=== PATIENT | female | born 1980 | race Caucasian/White ===

== ENCOUNTER 2017-01-03 09:00 | Outpatient (CLI) | payer MEDICAID, OTHER | END 2017-01-03 09:01 | disposition home or self-care (01) | DX: N95.1 Menopausal and female climacteric states (principal); O24.419 Gestational diabetes mellitus in pregnancy, unspecified control; E03.9 Hypothyroidism, unspecified ==

== ENCOUNTER 2017-05-18 10:32 | Outpatient (CLI) | payer MEDICAID ==
--- NOTE | 2017-05-18 15:51 | XRAY Report ---
FOUR-VIEW MANDIBLE: 05/18/2017 CLINICAL INDICATION: TMJ derangement. FINDINGS: AP, Noa, bilateral oblique views of the mandible demonstrate no evidence of acute fract ure. The mandibular condyles are normally located in the temporal fossa bilaterally. IMPRESSION: NORMAL MANDIBLE. JOB #: [id number] EXT JOB #:[id number]
== END 2017-05-18 10:33 | disposition home or self-care (01) ==
LOC: DI.S 10:32
PROVIDERS: ATTEND Family Medicine
DX: M26.69 Other specified disorders of temporomandibular joint (principal)
CPT/HCPCS: 70110

== ENCOUNTER 2017-06-25 19:16 | Emergency (ER) | payer MEDICAID ==
[2017-06-25] MEDS ORDERED: SODIUM CHLORIDE FLUSH 0.9% 10 ML SYRINGE IVP ONE (19:38)
[2017-06-25 20:10] LABS: BILIRUBIN,URINE NEGATIVE (NEGATIVE)
[2017-06-25 20:11] LABS: HCG UR QUAL NEGATIVE; UA w/ MICROSCOPIC CHARGE YES
[2017-06-25] MEDS ORDERED: ONDANSETRON 4 MG/2 ML VIAL IVP STA (20:11)
[2017-06-25] MEDS ORDERED: SODIUM CHLORIDE 0.9% 1,000 ML IV ONE (20:11)
[2017-06-25] MEDS ORDERED: KETOROLAC 60 MG/2 ML VIAL IVP STA (20:11)
--- NOTE | 2017-06-25 20:15 | ED Physician Documentation ---
PD HPI ABD PAIN - Stated complaint Stated Complaint: ABD PAIN - Chief complaint Chief Complaint: Abd Pain - History obtained from History obtained from: Patient - History of Present Illness Timing - onset: Today Timing - duration: Hours Timing - details: Abrupt onset, Still present Quality: Sharp, Pain Location: LUQ Radiation: Left flank Improved by: Other (nothing) Worsened by: Moving, Breathing, Position, Palpation Associated symptoms: Nausea, Vomiting, Dysuria Similar symptoms before: Has not had sx before Recently seen: Clinic - Additional information Additional information: 37 y/o female with urinary symptoms this weekend was put on macrobid today for symptoms and then this evening she developed acute left flank pain that was sudden and severe. Review of Systems Constitutional: denies: Fever, Chills Eyes: denies: Decreased vision Ears: denies: Ear pain Nose: denies: Congestion Throat: denies: Sore throat Cardiac: denies: Chest pain / pressure Respiratory: denies: Cough GI: reports: Abdominal Pain, Nausea, Vomiting : reports: Dysuria, Frequency Skin: denies: Rash Musculoskeletal: reports: Back pain. denies: Neck pain PD PAST MEDICAL HISTORY - Past Medical History Past Medical History: Yes Cardiovascular: None Respiratory: None Endocrine/Autoimmune: None GI: None : Other HEENT: None Psych: None Musculoskeletal: None Derm: None Other Past Medical History: uti - Past Surgical History Past Surgical History: No - Present Medications Home Medications: Ambulatory Orders Medication Instructions Recorded Confirmed Cyclobenzaprine [Flexeril] 10 mg PO HS 06/25/13 06/25/13 Omeprazole [PriLOSEC] 20 mg PO BID 06/25/13 06/25/13 Hydrocodone/Acetaminophen [[place] 1 each PO Q4HR PRN #20 tablet 07/03/16 5-325 Tablet] Ibuprofen [Motrin] 600 mg PO Q6H PRN #30 tab 07/03/16 Norethindrone [Nor-Q-D] 0.35 mg PO DAILY #84 tablet 07/03/16 HYDROcod/ACETAM 5/325 [[place] 5/325] 1 - 2 ea PO Q6H PRN #15 tablet 06/25/17 Sulfamethoxazole/Trimethoprim 1 each PO BID #14 tablet 06/25/17 [Sulfamethoxazole-Tmp Ds Tablet] - Allergies Allergies/Adverse Reactions: Allergies Allergy/AdvReac Type Severity Reaction Status Date / Time No Known Drug Allergies Allergy Verified 06/25/17 19:25 - Social History Does the pt smoke?: No Smoking Status: Never smoker PD ED PE NORMAL - Vitals Vital signs reviewed: Yes (hypertensive) - General General: Well developed/nourished, Other (uncomfortable appearing female with vomit in a bag next to her ) - HEENT HEENT: Atraumatic, PERRL - Neck Neck: Supple, no meningeal sign - Cardiac Cardiac: RRR, No murmur - Respiratory Respiratory: No respiratory distress, Clear bilaterally - Abdomen Abdomen: Soft, Non tender - Back Back: No spinal TTP, Other (pain to the left flank is not made worse by palpation ) - Derm Derm: Normal color, Warm and dry, No rash - Extremities Extremities: No deformity, No edema - Neuro Neuro: No motor deficit, No sensory deficit Results - Vitals Vitals: Vital Signs - 24 hr 06/25/17 19:20 Temperature 36.6 C Heart Rate 95 Respiratory 22 Rate Blood Pressure 139/93 H O2 Saturation 99 Oxygen O2 Source Room air - Labs Labs: Laboratory Tests 06/25/17 06/25/17 06/25/17 19:30 19:40 19:40 WBC 11.4 H RBC 3.97 L Hgb 12.9 Hct 37.5 MCV 94.4 MCH 32.5 H MCHC 34.4 RDW 13.5 Plt Count 219 MPV 7.8 L Neut # 8.1 H Lymph # 2.5 [place]ila # 0.7 Eos # 0.1 Baso # 0.0 Absolute Nucleated RBC 0.00 Nucleated RBCs 0.0 Sodium 133 L Potassium 3.4 L Chloride 101 Carbon Dioxide 22 Anion Gap 10.0 BUN 14 Creatinine 0.6 Estimated GFR (MDRD) 112 Glucose 111 H Calcium 9.2 Total Bilirubin 0.7 AST 28 ALT 36 Alkaline Phosphatase 68 Total Protein 7.7 Albumin 4.6 Globulin 3.1 Albumin/Globulin Ratio 1.5 Lipase 30 Urine Color YELLOW Urine Clarity CLOUDY Urine pH 6.0 Ur Specific [place] 1.020 Urine Protein 100 H Urine Glucose (UA) NEGATIVE Urine Ketones NEGATIVE Urine Occult Blood LARGE H Urine Nitrite NEGATIVE Urine Bilirubin NEGATIVE Urine Urobilinogen 0.2 (NORMAL) Ur Leukocyte Esterase MODERATE H Urine RBC TNTC H Urine WBC >25 H Urine WBC Clumps PRESENT Ur Squamous Epith Cells RARE Squamous Urine Bacteria Few Ur Microscopic Review INDICATED Urine Culture Comments INDICATED Urine HCG, Qual NEGATIVE - Rads (name of study) CT abdomen and pelvis Radiology: Prelim report reviewed (Impression: Mild left hydronephrosis, hydroureter, and perinephric and periureteral fat stranding without obstructing stone or mass identified. This could represent a recently passed stone.), EMP read indepedently, See rad report Procedures - Bedside sono Bedside sono by EMP: with the use of bedside ultrasound the left kidney is imaged and shows hydronephrosis mild with mild sonographic tenderness. PD MEDICAL DECISION MAKING - ED course Complexity details: reviewed results, re-evaluated patient, considered differential, d/w patient, d/w family ED course: 37-year-old female with acute left flank pain that is severe when she arrives to the emergency department has mild hydronephrosis on bedside ultrasound examination and a CT scan is obtained of the abdomen pelvis for concern of a stone. The CT scan as well without evidence of stone but with evidence of residual hydro-ureter and hydronephrosis and the patient recounts that her pain is dramatically improved when she returns to the emergency department from imaging. She has persistence of some left flank pain and urinalysis is consistent with infection with greater than 25 white blood cells per high-power field. She is given IV Rocephin and we will change her antibiotic to sulfa. Departure - Departure Disposition: 01 Home, Self Care Clinical Impression: Pyelonephritis Condition: Stable Instructions: ED Kidney Infec Female Follow-Up: [facility] [Provider Group] Prescriptions: HYDROcod/ACETAM 5/325 [[place] 5/325] 1 - 2 ea PO Q6H PRN #15 tablet PRN Reason: Pain Sulfamethoxazole/Trimethoprim [Sulfamethoxazole-Tmp Ds Tablet] 1 each PO BID # 14 tablet Forms: Activity restrictions
[2017-06-25] MEDS ORDERED: KETOROLAC 30 MG/ML VIAL ONE (20:18)
[2017-06-25] MEDS ORDERED: ONDANSETRON 4 MG/2 ML VIAL ONE (20:18)
[2017-06-25 20:19] LABS: BASOPHILS % (AUTO) 0.3 %; EOSINOPHILS # (AUTO) 0.1 10^3/uL (0.0-0.7); EOSINOPHILS % (AUTO) 0.6 %; HCT - HEMATOCRIT 37.5 % (37.0-47.0); HGB - HEMOGLOBIN 12.9 g/dL (12.0-16.0); LYMPHOCYTES # (AUTO) 2.5 10^3/uL (1.5-3.5); LYMPHOCYTES % (AUTO) 21.8 %; MEAN CORPUSCULAR HEMOGLOBIN 32.5 pg (27.0-31.0); MEAN CORPUSCULAR HGB CONC 34.4 g/dL (32.0-36.0); MEAN CORPUSCULAR VOLUME 94.4 fL (81.0-99.0); MEAN PLATELET VOLUME 7.8 fL (7.9-10.8); MONOCYTES # (AUTO) 0.7 10^3/uL (0.0-1.0); MONOCYTES % (AUTO) 6.5 %; NEUTROPHILS # (AUTO) 8.1 10^3/uL (1.5-6.6); NEUTROPHILS % (AUTO) 70.8 %; RED BLOOD COUNT 3.97 10^6/uL (4.20-5.40); RED CELL DISTRIBUTION WIDTH 13.5 % (12.0-15.0); UNCORRECTED WHITE BLOOD COUNT 11.4 x10^3/uL; WHITE BLOOD COUNT 11.4 x10^3/uL (4.8-10.8)
[2017-06-25 20:26] LABS: UR CULTURE IF IND INDICATED; WBC,URINE >25 /HPF (0-5)
[2017-06-25 20:36] LABS: ALBUMIN/GLOBULIN RATIO 1.5 (1.0-2.2); BILIRUBIN,TOTAL 0.7 mg/dL (0.2-1.0); CALCIUM 9.2 mg/dL (8.5-10.3); CREATININE 0.6 mg/dL (0.4-1.0); POTASSIUM 3.4 mmol/L (3.5-5.0); TOTAL PROTEIN 7.7 g/dL (6.7-8.2)
--- NOTE | 2017-06-25 21:09 | CT Preliminary Report ---
Exam: CT Abdomen/Pelvis W/O IMPRESSION: Mild left hydronephrosis, hydroureter, and perinephric and periureteral fat stranding without obstruc ting stone or mass identified. This could represent a recently passed stone. [facility] SITE ID: [id number]
--- NOTE | 2017-06-25 21:11 | CT Report ---
EXAM: CT ABDOMEN AND PELVIS (CT KUB) EXAM DATE: 06/25/2017 08:38 PM. CLINICAL HISTORY: Left flank pain with nausea and vomiting. Dysuria. COMPARISONS: None. TECHNIQUE: Routine axial helical CT imaging was performed through the abdomen and pelvis without IV c ontrast. Reconstructions: Coronal and sagittal. In accordance with CT protocol optimization, one or more of the following dose reduction techniques w ere utilized for this exam: automated exposure control, adjustment of mA and/or KV based on patient s ize, or use of iterative reconstructive technique. FINDINGS: Lung Bases: Unremarkable. Right Kidney/Ureter: No stones, hydronephrosis, or hydroureter. No perinephric fat stranding. Left Kidney/Ureter: Mild hydronephrosis, hydroureter, and perinephric and periureteral fat stranding. No stones identified. Other Solid Organs: Noncontrast images of the solid organs are grossly unremarkable. Gallbladder/Bile Ducts: Unremarkable. Peritoneal Cavity: No free fluid, free air or lauren adenopathy. Bowel is grossly unremarkable. Pelvic Organs: No bladder stones or wall thickening. Noncontrast images of the visualized pelvic orga ns are unremarkable. Vasculature: Unremarkable. Other: None. IMPRESSION: Mild left hydronephrosis, hydroureter, and perinephric and periureteral fat stranding without obstruc ting stone or mass identified. This could represent a recently passed stone. [facility] Referring Provider Line: [phone] SITE ID: [id number]
[2017-06-25] MEDS ORDERED: cefTRIAXone 1 GM in SODIUM CHLORIDE 0.9% MINIBAG 100 ML IV STA (21:36)
[2017-06-25] MEDS ORDERED: HYDROmorphone 1 MG/ML SYRINGE IVP STA (21:39)
[2017-06-25] MEDS ORDERED: HYDROcod/ACET 5/325 Prepack 6 PO ONE ×2 (21:43→22:23)
[2017-06-25] MEDS ORDERED: cefTRIAXone 1 GM VIAL ONE ×2 (21:48→21:52)
[2017-06-25] MEDS ORDERED: HYDROmorphone 1 MG/ML SYRINGE ONE ×2 (21:48→21:52)
[2017-06-25 22:30] VITALS: BP 131/79
== END 2017-06-25 22:30 | disposition home or self-care (01) ==
LOC: ED 19:16
DX: N12 Tubulo-interstitial nephritis, not specified as acute or chronic (principal); N13.30 Unspecified hydronephrosis; N13.4 Hydroureter
CPT/HCPCS: 36415; 74176; 80053; 81001; 81025; 83690; 85025; 87077; 87086; 87181; 96374; 96375; 99283; 99284; J1170; 81003

== ENCOUNTER 2018-07-05 11:52 | Outpatient (CLI) | payer MEDICAID ==
[2018-07-05 18:37] LABS: BASOPHILS % (AUTO) 0.5 %; EOSINOPHILS # (AUTO) 0.1 10^3/uL (0.0-0.7); HGB - HEMOGLOBIN 13.2 g/dL (12.0-16.0); LYMPHOCYTES # (AUTO) 1.6 10^3/uL (1.5-3.5); MEAN CORPUSCULAR HEMOGLOBIN 33.9 pg (27.0-31.0); MEAN CORPUSCULAR HGB CONC 35.6 g/dL (32.0-36.0); MEAN CORPUSCULAR VOLUME 95.2 fL (81.0-99.0); MEAN PLATELET VOLUME 8.5 fL (7.9-10.8); MONOCYTES # (AUTO) 0.4 10^3/uL (0.0-1.0); MONOCYTES % (AUTO) 6.6 %; NEUTROPHILS # (AUTO) 3.4 10^3/uL (1.5-6.6); NEUTROPHILS % (AUTO) 62.9 %; PLT - PLATELET COUNT 192 10^3/uL (130-450); RED BLOOD COUNT 3.88 10^6/uL (4.20-5.40); RED CELL DISTRIBUTION WIDTH 12.2 % (12.0-15.0); WHITE BLOOD COUNT 5.4 x10^3/uL (4.8-10.8)
[2018-07-05 19:41] LABS: ALBUMIN 4.1 g/dL (3.2-5.5); ALBUMIN/GLOBULIN RATIO 1.3 (1.0-2.2); BILIRUBIN,TOTAL 0.9 mg/dL (0.2-1.0); CALCIUM 8.9 mg/dL (8.5-10.3); CREATININE 0.6 mg/dL (0.4-1.0); TOTAL PROTEIN 7.2 g/dL (6.7-8.2)
[2018-07-05 19:50] LABS: THYROID STIMULATING HORMONE 0.73 uIU/mL (0.34-5.60)
[2018-07-05 19:55] LABS: PROLACTIN 5.69 ng/mL
[2018-07-05 20:19] LABS: HB2 TOTAL 13.6 g/dL; HEMOGLOBIN A1C 0.44 g/dL; HEMOGLOBIN A1C % 5.1 % (4.6-6.2)
== END 2018-07-05 11:53 | disposition home or self-care (01) ==
LOC: LAB.N 11:52
PROVIDERS: ATTEND Family Medicine
DX: N64.52 Nipple discharge (principal); N64.4 Mastodynia; R73.01 Impaired fasting glucose; R53.83 Other fatigue; E03.9 Hypothyroidism, unspecified
CPT/HCPCS: 36415; 80053; 83036; 84144; 84146; 84443; 85025; 85651

== ENCOUNTER 2018-07-16 09:34 | Outpatient (CLI) | payer MEDICAID ==
[2018-07-16 18:09] LABS: FERRITIN 61.5 ng/mL (11.0-306.8)
[2018-07-16 18:12] LABS: % IRON SATURATION 40 % (20-50); IRON 131 ug/dL (28-170); TOTAL IRON BINDING CAPACITY 329 ug/dL (250-450); TRANSFERRIN 235 mg/dL (192-382)
[2018-07-16 18:53] LABS: FOLATE 14.69 ng/mL (5.90 - >24.8)
== END 2018-07-16 09:35 | disposition home or self-care (01) ==
LOC: LAB.F 09:34
PROVIDERS: ATTEND Nurse Practitioner
DX: D64.9 Anemia, unspecified (principal)
CPT/HCPCS: 36415; 82607; 82728; 82746; 83540; 84466

== ENCOUNTER 2018-08-23 11:57 | Outpatient (CLI) | payer MEDICAID | END 2018-08-23 11:58 | disposition home or self-care (01) | LOC: LAB.R 11:57 | PROVIDERS: ATTEND Registered Nurse | DX: N76.0 Acute vaginitis (principal) | CPT/HCPCS: 87491; 87591 ==

== ENCOUNTER 2018-08-28 07:53 | Outpatient (CLI) | payer MEDICAID | END 2018-08-28 07:54 | disposition home or self-care (01) | LOC: LAB 07:53 | PROVIDERS: ATTEND Registered Nurse | DX: R73.01 Impaired fasting glucose (principal) | CPT/HCPCS: 36415; 82951 ==

== ENCOUNTER 2019-07-18 07:00 | Outpatient (CLI) | payer MEDICAID | END 2019-07-18 23:59 | disposition home or self-care (01) | LOC: LAB.R 07:00 | PROVIDERS: ATTEND Registered Nurse | DX: J02.9 Acute pharyngitis, unspecified (principal) | CPT/HCPCS: 87070 ==

== ENCOUNTER 2019-10-21 10:33 | Outpatient (CLI) | payer MEDICAID ==
[2019-10-21 10:44] LABS: HCG UR QUAL NEGATIVE
[2019-10-21 10:49] LABS: BASOPHILS % (AUTO) 0.6 %; EOSINOPHILS # (AUTO) 0.1 10^3/uL (0.0-0.7); EOSINOPHILS % (AUTO) 1.8 %; HGB - HEMOGLOBIN 13.8 g/dL (12.0-16.0); LYMPHOCYTES # (AUTO) 2.3 10^3/uL (1.5-3.5); LYMPHOCYTES % (AUTO) 33.1 %; MEAN CORPUSCULAR HEMOGLOBIN 34.1 pg (27.0-31.0); MEAN CORPUSCULAR HGB CONC 34.5 g/dL (32.0-36.0); MEAN CORPUSCULAR VOLUME 98.8 fL (81.0-99.0); MEAN PLATELET VOLUME 9.4 fL (7.9-10.8); MONOCYTES # (AUTO) 0.5 10^3/uL (0.0-1.0); MONOCYTES % (AUTO) 7.3 %; NEUTROPHILS % (AUTO) 56.9 %; PLT - PLATELET COUNT 224 10^3/uL (130-450); RED BLOOD COUNT 4.05 10^6/uL (4.20-5.40); RED CELL DISTRIBUTION WIDTH 11.8 % (12.0-15.0); WHITE BLOOD COUNT 7.1 x10^3/uL (4.8-10.8)
[2019-10-21 10:59] LABS: CALCIUM 9.8 mg/dL (8.5-10.3); CREATININE 0.6 mg/dL (0.4-1.0)
== END 2019-10-21 10:34 | disposition home or self-care (01) ==
LOC: LAB 10:33
PROVIDERS: ATTEND Obstetrics & Gynecology
DX: Z30.2 Encounter for sterilization (principal); R68.82 Decreased libido
CPT/HCPCS: 36415; 80048; 81025; 85025; 86850; 86900; 86901

== ENCOUNTER 2019-10-22 09:49 | Day surgery (SDC) | payer MEDICAID ==
[2019-10-22] MEDS ORDERED: LACTATED RINGERS 1,000 ML IV ONE (10:11)
[2019-10-22] MEDS ORDERED: CEFAZOLIN SODIUM IN 0.9 % NACL 2 GM/100 ML BAG IV ONE (10:16)
[2019-10-22] MEDS ORDERED: LIDOCAINE 1%-EPI 1:100000 20 ML MDV ONE (11:05)
[2019-10-22] MEDS ORDERED: SCOPOLAMINE PATCH TOP ONE (11:13)
[2019-10-22] MEDS ORDERED: DEXAMETHASONE 4 MG/ML VIAL ONE (11:13)
--- NOTE | 2019-10-22 11:13 | ANESTHESIA ---
Pre-Anesthesia VS, & Labs - Diagnosis undesired fertility - Procedure Laparoscopic salpingectomy and removal of nexplanon Vital Signs: Temp Pulse Resp BP Pulse Ox 36.0 C L 90 18 136/97 H 100 10/22/19 10:12 10/22/19 10:12 10/22/19 10:12 10/22/19 10:12 10/22/19 10:12 Height 5 ft 7 in Weight (kg) 102.6 kg Body Mass Index 32.1 - NPO >8 hours - Is Patient ?: No Home Medications and Allergies Home Medications: Ambulatory Orders Clobetasol Propionate 1 applic TP BID PRN 10/21/19 Etonogestrel [Nexplanon] 68 mg SQ ONCE 10/21/19 Lisdexamfetamine Dimesylate [Vyvanse] 60 mg PO DAILY 10/21/19 Mirtazapine 30 mg PO QPM 10/21/19 risperiDONE [Risperdal] 1 mg PO QPM 10/21/19 Clobetasol Propionate 1 applic TP BID PRN 10/21/19 Etonogestrel [Nexplanon] 68 mg SQ ONCE 10/21/19 Lisdexamfetamine Dimesylate [Vyvanse] 60 mg PO DAILY 10/21/19 Mirtazapine 30 mg PO QPM 10/21/19 risperiDONE [Risperdal] 1 mg PO QPM 10/21/19 Allergies/Adverse Reactions: Allergies Allergy/AdvReac Type Severity Reaction Status Date / Time No Known Drug Allergies Allergy Verified 06/25/17 19:25 Anes History & Medical History - Anesthetic History Anesthesia Complications: reports: Post-Operative Nausea/Vomiting - Medical History Cardiovascular: reports: None Pulmonary: reports: None Gastrointestinal: reports: GERD (resolved after lap oscar) Urinary: reports: None Neuro: reports: None Musculoskeletal: reports: None Endocrine/Autoimmune: reports: None Blood Disorders: reports: None Skin: reports: None Smoking Status: Former smoker (quit 10 years ago) Psychosocial: reports: Depression, Anxiety, Alcohol (2-3 drinks, 3x per week.) - Surgical History General: Other (Lap oscar) Exam General: Alert, Oriented x3, Cooperative, No acute distress Dental: WNL Mouth Openin Fingerbreadth Neck Mobility: Normal Mallampati classification: I Thyromental Distance: greater than 6 cm Respiratory: Lungs clear, Normal breath sounds, No respiratory distress, No accessory muscle use Cardiovascular: Regular rate, Normal S1, Normal S2, No murmurs Mental/Cognitive Status: Alert/Oriented X3, Normal for patient Plan Anesthesia Type: General Consent for Procedure(s) Verified and Reviewed: Yes Code Status: Attempt Resuscitation ASA classification: 2-Mild systemic disease Is this case an emergency?: No
[2019-10-22] MEDS ORDERED: ROCURONIUM 50 MG/5 ML VIAL IVP ONE (11:37)
[2019-10-22] MEDS ORDERED: fentaNYL 100 MCG/2 ML VIAL IVP ONE (11:37)
[2019-10-22] MEDS ORDERED: LIDOCAINE-MPF 2% 5 ML VIAL IM ONE (11:37)
[2019-10-22] MEDS ORDERED: NEOSTIGMINE 1 MG/1 ML 10 ML MDV IVP ONE (11:37)
[2019-10-22] MEDS ORDERED: GLYCOPYRROLATE 1 MG/5 ML VIAL IVP ONE (11:37)
[2019-10-22] MEDS ORDERED: PROPOFOL 200 MG/20 ML VIAL IVP ONE (11:37)
[2019-10-22] MEDS ORDERED: ONDANSETRON 4 MG/2 ML VIAL IVP ONE (11:37)
[2019-10-22] MEDS ORDERED: KETOROLAC 30 MG/ML VIAL IVP ONE (11:37)
[2019-10-22] MEDS ORDERED: ACETAMINOPHEN 1,000 MG/100 ML 100 ML IV ONE (11:37)
[2019-10-22] MEDS ORDERED: LIDOCAINE 1%-EPI 1:100000 30 ML MDV SUBQ ONE (12:21)
[2019-10-22] MEDS ORDERED: HYDROmorphone 0.5 MG/0.5 ML SYRINGE IVP PRN (13:25)
[2019-10-22] MEDS ORDERED: oxyCODONE 5 MG TABLET PO PRN (13:25)
[2019-10-22] MEDS ORDERED: LORazepam 2 MG/ML VIAL IVP PRN (13:25)
[2019-10-22] MEDS ORDERED: ONDANSETRON 4 MG/2 ML VIAL IVP PRN (13:25)
--- NOTE | 2019-10-22 13:28 | OPERATIVE REPORT ---
Operative Report - General Procedure Date: 10/22/19 Planned Procedure: Laproscopic bilateral salpingectomy with removal of Nexplanon Pre-Op Diagnosis: undesired fertility Procedure Performed: Laproscopic bilateral salpingectomy with removal of Nexplanon Post Op Diagnosis: undesired fertility - Procedure Note Secondary Surgeon: Pedrito Lynn MD Anesthesia Provider: Lillian Herrera CRNA Anesthesia Technique: General ET tube Pathology: Bilateral tubes IV Fluids (mL): 700 Estimated Blood Loss (mL): 5 Findings: Normal pelvis and appendix Complications: none
--- NOTE | 2019-10-22 14:00 | OPERATIVE REPORT ---
DATE OF SERVICE: 10/22/2019 Physician: Pedrito Lynn MD PREOPERATIVE DIAGNOSIS: Undesired infertility, Nexplanon in place. POSTOPERATIVE DIAGNOSIS: Undesired infertility, Nexplanon in place. PROCEDURE PERFORMED: Laparoscopic bilateral salpingectomy with removal of the Nexplanon from the lef t arm. SURGEON: Pedrito Lynn MD ANESTHESIA PROVIDER: Lillian Herrera CRNA. ANESTHESIA: General via endotracheal tube. PATHOLOGY: Bilateral fallopian tubes. ESTIMATED BLOOD LOSS: 5 mL IV URINE OUTPUT: 700 mL FINDINGS: Upon entering the abdominal cavity, there was evidence of normal tubes without evidence of adhesions. The appendix also appeared to be free of disease. PROCEDURE IN DETAIL: Following adequate general anesthesia via endotracheal tube, patient was placed in the dorsal lithotomy position. At this point, timeout was performed. She was then prepped and d raped in the usual fashion. A speculum was placed in the vagina. Cervix was visualized, grasped wit h a single-tooth tenaculum, then dilated up to 8 mm. A HUMI catheter manipulator was placed in the c ervix. The corrugated box machine operator's gloves were changed and following this, 1% lidocaine with epinephrine was used to inject the subumbilical area, and an #11 blade was used to incise the skin. A 5 mm trocar and sh eath were placed without difficulty. Then, both the left and right lower quadrants were anesthetized with 1% lidocaine and then incised with a #11 blade. A trocar was placed on either side under direc t visualization. At this point, the left fallopian tube was identified, grasped with a grasper and t hen a LigaSure was used to cauterize and transect the mesosalpinx. Care was taken to stay as close t o the tube as possible to minimize risk of injury to the ovarian vessels. This was carried all the w ay to the cornu and then the tube was transected and brought out through the 5 mm port. This was the n accomplished on the right hand side in the similar fashion. At this point, the appendix was inspec hossein and noted to be normal. The trocars were removed and then the CO2 was allowed to escape. All 3 trocars were closed with 4-0 Monocryl subcuticular and then with Dermabond superficially. The HUMI m anipulator was then removed from the vagina following deflating the balloon. The left arm was then b rought out, prepped with Hibiclens and then following local anesthesia with 1% lidocaine with epineph rine, a skin incision was made with a #15 blade. The Nexplanon was pushed into the incision and gras ped with a hemostat and then removed. It was inspected and noted to be complete. The incision was c losed subcuticularly with Monocryl and then Dermabond placed. Patient tolerated the procedure well a nd was taken to recovery in stable condition. Sponge and needle counts were correct. TD: 10/22/2019 13:38
[2019-10-22] MEDS ORDERED: oxyCODONE 5 MG TABLET ONE (14:04)
[2019-10-22 15:23] VITALS: BP 128/75
== END 2019-10-22 09:50 | disposition home or self-care (01) ==
LOC: SDS 09:49
PROVIDERS: ATTEND Obstetrics & Gynecology
PROC: 0JPV0HZ Removal of Contraceptive Device from Upper Extremity Subcutaneous Tissue and Fascia, Open Approach (ICD-10-PCS; 2019-10-22)
PROC: 0UT74ZZ Resection of Bilateral Fallopian Tubes, Percutaneous Endoscopic Approach (ICD-10-PCS; principal; 2019-10-22 11:15)
DX: Z30.2 Encounter for sterilization (principal); Z30.432 Encounter for removal of intrauterine contraceptive device; F41.9 Anxiety disorder, unspecified; F32.9 Major depressive disorder, single episode, unspecified; F98.8 Other specified behavioral and emotional disorders with onset usually occurring in childhood and adolescence; E66.9 Obesity, unspecified; Z68.36 Body mass index [BMI] 36.0-36.9, adult; Z87.891 Personal history of nicotine dependence; Z87.19 Personal history of other diseases of the digestive system
CPT/HCPCS: 11982; 58661; A9270; J0131; J0690; J1170; J3490; J7120

== ENCOUNTER 2019-11-26 11:51 | Outpatient (CLI) | payer MEDICAID ==
[2019-11-26 17:56] LABS: THYROID STIMULATING HORMONE 1.11 uIU/mL (0.34-5.60)
[2019-11-26 18:24] LABS: FOLLICLE STIMULATING HORMONE 7.88 mIU/mL
[2019-11-26 18:25] LABS: LUTEINIZING HORMONE 6.12 mIU/mL
== END 2019-11-26 11:52 | disposition home or self-care (01) ==
LOC: LAB.S 11:51
PROVIDERS: ATTEND Physician Assistant Medical
DX: Z01.419 Encounter for gynecological examination (general) (routine) without abnormal findings (principal); N93.9 Abnormal uterine and vaginal bleeding, unspecified; R68.82 Decreased libido
CPT/HCPCS: 36415; 81599; 82670; 83001; 83002; 84443

== ENCOUNTER 2020-04-02 23:30 | Emergency (ER) | payer MEDICAID ==
[2020-04-02 23:48] LABS: BILIRUBIN,URINE NEGATIVE (NEGATIVE); GLUCOSE, URINE (UA) NEGATIVE (NEGATIVE); KETONES,URINE (UA) TRACE mg/dL (NEGATIVE); LEUKOCYTE ESTERASE, URINE NEGATIVE (NEGATIVE); NITRITE,URINE NEGATIVE (NEGATIVE); OCCULT BLOOD,URINE MODERATE (NEGATIVE); PROTEIN,URINE NEGATIVE (NEGATIVE); UROBILINOGEN,URINE 0.2 (NORMAL) E.U./dL (NORMAL)
[2020-04-02 23:49] LABS: CLARITY,URINE CLEAR (CLEAR)
[2020-04-02 23:58] LABS: BASOPHILS % (AUTO) 0.3 %; EOSINOPHILS # (AUTO) 0.1 10^3/uL (0.0-0.7); EOSINOPHILS % (AUTO) 0.9 %; HGB - HEMOGLOBIN 14.1 g/dL (12.0-16.0); LYMPHOCYTES # (AUTO) 0.6 10^3/uL (1.5-3.5); LYMPHOCYTES % (AUTO) 9.1 %; MEAN CORPUSCULAR HEMOGLOBIN 34.6 pg (27.0-31.0); MEAN CORPUSCULAR HGB CONC 35.7 g/dL (32.0-36.0); MEAN CORPUSCULAR VOLUME 96.8 fL (81.0-99.0); MEAN PLATELET VOLUME 9.2 fL (7.9-10.8); MONOCYTES # (AUTO) 0.3 10^3/uL (0.0-1.0); MONOCYTES % (AUTO) 4.1 %; NEUTROPHILS # (AUTO) 5.6 10^3/uL (1.5-6.6); NEUTROPHILS % (AUTO) 85.3 %; PLT - PLATELET COUNT 210 10^3/uL (130-450); RED BLOOD COUNT 4.08 10^6/uL (4.20-5.40); RED CELL DISTRIBUTION WIDTH 12.1 % (12.0-15.0); WHITE BLOOD COUNT 6.6 x10^3/uL (4.8-10.8)
[2020-04-02 23:59] LABS: SQUAMOUS EPITHELIAL CELL,UR RARE Squamous (<= Few)
[2020-04-03] LABS: BACTERIA,URINE None Seen /HPF (None Seen)
[2020-04-03] MEDS ORDERED: ONDANSETRON 4 MG/2 ML VIAL IVP STA ×2 (00:01→02:04)
[2020-04-03 00:09] LABS: ALBUMIN 4.4 g/dL (3.2-5.5); ALBUMIN/GLOBULIN RATIO 1.3 (1.0-2.2); BILIRUBIN,TOTAL 0.9 mg/dL (0.2-1.0); CALCIUM 8.6 mg/dL (8.5-10.3); CREATININE 0.6 mg/dL (0.4-1.0); TOTAL PROTEIN 7.7 g/dL (6.7-8.2)
[2020-04-03] MEDS ORDERED: KETOROLAC 30 MG/ML VIAL IVP STA (01:01)
--- NOTE | 2020-04-03 01:35 | ED Physician Documentation ---
History of Present Illness - Stated complaint Stated Complaint: NAUSEA/BODY ACHES - Chief complaint Chief Complaint: Abd Pain - History obtained from History obtained from: Patient - History of Present Illness Timing: Yesterday Pain level max: 6 Pain level now: 4 Improved by: nothing Worsened by: no exacerbating factors - Additonal information Additional information: c/o epigastric cramping since yesterday, episodic. diarrhea x 1 week. nausea without vomiting. has had Lori fundoplication (October 2018) Review of Systems Constitutional: reports: Reviewed and negative Cardiac: reports: Reviewed and negative Respiratory: reports: Reviewed and negative GI: reports: Abdominal Pain, Nausea. denies: Vomiting, Constipation, Diarrhea : denies: Dysuria, Frequency PD PAST MEDICAL HISTORY - Past Medical History Cardiovascular: None Respiratory: None Neuro: None Endocrine/Autoimmune: None GI: GERD (resolved after lap oscar) : None HEENT: None Psych: Depression, Anxiety, ADD/ADHD Musculoskeletal: None Derm: None - Past Surgical History Past Surgical History: No General: Other (Lap oscar) - Present Medications Home Medications: Ambulatory Orders Medication Instructions Recorded Confirmed Clobetasol Propionate 1 applic TP BID PRN 10/21/19 10/21/19 Etonogestrel [Nexplanon] 68 mg SQ ONCE 10/21/19 10/21/19 Lisdexamfetamine Dimesylate 60 mg PO DAILY 10/21/19 10/21/19 [Vyvanse] Mirtazapine 30 mg PO QPM 10/21/19 10/21/19 risperiDONE [Risperdal] 1 mg PO QPM 10/21/19 10/21/19 Ondansetron Odt [Zofran] 4 mg TL Q6H PRN #14 tablet 04/03/20 oxyCODONE [Roxicodone] 5 - 10 mg PO Q6H PRN #20 tablet 04/03/20 - Allergies Allergies/Adverse Reactions: Allergies Allergy/AdvReac Type Severity Reaction Status Date / Time No Known Drug Allergies Allergy Verified 04/02/20 23:37 - Social History Does the pt smoke?: No Smoking Status: Former smoker (quit 10 years ago) PD ED PE NORMAL - Vitals Vital signs reviewed: Yes - General General: Alert and oriented X 3, No acute distress, Well developed/nourished - HEENT HEENT: Moist mucous membranes - Neck Neck: Supple, no meningeal sign - Cardiac Cardiac: RRR, No murmur - Respiratory Respiratory: No respiratory distress, Clear bilaterally - Abdomen Abdomen: Normal bowel sounds, Soft, Non tender, Non distended - Back Back: No CVA TTP - Derm Derm: No rash Results - Vitals Vitals: Oxygen O2 Source Room air - Labs Labs: Laboratory Tests 04/02/20 04/02/20 04/02/20 23:43 23:50 23:50 WBC 6.6 RBC 4.08 L Hgb 14.1 Hct 39.5 MCV 96.8 MCH 34.6 H MCHC 35.7 RDW 12.1 Plt Count 210 MPV 9.2 Neut # (Auto) 5.6 Lymph # (Auto) 0.6 L [place] # (Auto) 0.3 Eos # (Auto) 0.1 Baso # (Auto) 0.0 Absolute Nucleated RBC 0.00 Nucleated RBC % 0.0 Sodium 130 L Potassium 3.8 Chloride 99 L Carbon Dioxide 21 Anion Gap 10.0 BUN 18 Creatinine 0.6 Estimated GFR (MDRD) 111 Glucose 142 H Calcium 8.6 Total Bilirubin 0.9 AST 35 ALT 45 Alkaline Phosphatase 67 Total Protein 7.7 Albumin 4.4 Globulin 3.3 Albumin/Globulin Ratio 1.3 Lipase 30 Urine Color YELLOW Urine Clarity CLEAR Urine pH 6.0 Ur Specific [place] 1.020 Urine Protein NEGATIVE Urine Glucose (UA) NEGATIVE Urine Ketones TRACE Urine Occult Blood MODERATE H Urine Nitrite NEGATIVE Urine Bilirubin NEGATIVE Urine Urobilinogen 0.2 (NORMAL) Ur Leukocyte Esterase NEGATIVE Urine RBC 6-10 H Urine WBC 0-3 Ur Squamous Epith Cells RARE Squamous Urine Bacteria None Seen Ur Microscopic Review INDICATED Urine Culture Comments NOT INDICATED - Rads (name of study) RUQ US Radiology: Prelim report reviewed, See rad report PD MEDICAL DECISION MAKING - ED course Complexity details: reviewed results, re-evaluated patient, considered differential, d/w patient Departure - Departure Disposition: 01 Home, Self Care Clinical Impression: Biliary colic Condition: Good Instructions: ED Gallstone W Biliary Colic Follow-Up: Marisol Gonzalez PA-C [Primary Care Provider] - Within 1 week Michael Solis MD [Provider Admit Priv/Credential] - Prescriptions: oxyCODONE [Roxicodone] 5 - 10 mg PO Q6H PRN #20 tablet PRN Reason: Pain Ondansetron Odt [Zofran] 4 mg TL Q6H PRN #14 tablet PRN Reason: Nausea / Vomiting Discharge Date/Time: 04/03/20 05:53
[2020-04-03] MEDS ORDERED: SODIUM CHLORIDE 0.9% 1,000 ML IV STA (02:04)
[2020-04-03] MEDS ORDERED: HYDROmorphone 1 MG/ML CARPUJECT IVP STA ×2 (02:04→04:24)
[2020-04-03 04:26] VITALS: BP 115/77
--- NOTE | 2020-04-03 08:26 | Ultrasound Report ---
PROCEDURE: Abdomen Limited INDICATIONS: RUQ pain, tenderness TECHNIQUE: Real-time focused scanning was performed of the abdomen, with image documentation. COMPARISON: CT abdomen and pelvis without contrast dated 06/25/2017 FINDINGS: There is a mobile gallstone in the gallbladder. There is no sonographic Corrales's sign. The re is no gallbladder wall thickening. No fluid around the gallbladder. Increased hepatic echogenicity is consistent with fatty change. There is fatty sparing around the gal lbladder. No focal liver mass. Mild enlargement of the liver. The liver measures 20 cm. Visualized portions of the pancreas are unremarkable. No biliary ductal dilatation. Common bile duct measures 5.1 mm. Common hepatic duct measures 4.6 mm. Right kidney is normal in size without hydronephrosis. IMPRESSION: 1. Hepatic steatosis. Mild hepatomegaly. 2. Cholelithiasis without evidence of acute cholecystitis. A preliminary report with the above findings was provided at the time of the study by [facility]. Reviewed by: Rob Muro MD on 04/03/2020 7:25 AM DORIAN Approved by: Rob Muro MD on 04/03/2020 7:25 AM DORIAN Station ID: [id number]
== END 2020-04-03 05:53 | disposition home or self-care (01) ==
LOC: ED 23:30
DX: K80.20 Calculus of gallbladder without cholecystitis without obstruction (principal); K76.0 Fatty (change of) liver, not elsewhere classified; Z87.891 Personal history of nicotine dependence
CPT/HCPCS: 36415; 76705; 80053; 81001; 83690; 85025; 96361; 96374; 96375; 96376; 99284; J1170; 81003; 87086

== ENCOUNTER 2020-04-14 17:46 | Inpatient (IN) | payer MEDICAID ==
[2020-04-14] MEDS ORDERED: ONDANSETRON 4 MG/2 ML VIAL IVP STA ×3 (18:06→21:28)
[2020-04-14] MEDS ORDERED: IOVERSOL 320 50 ML VIAL ONE (18:14)
[2020-04-14] MEDS ORDERED: HYDROmorphone 1 MG/ML CARPUJECT IVP STA ×2 (18:14→19:22)
[2020-04-14] MEDS ORDERED: IOVERSOL 320 100 ML VIAL IVP ONE ×2 (18:14→19:48)
--- NOTE | 2020-04-14 18:18 | ED Physician Documentation ---
PD HPI ABD PAIN - Stated complaint Stated Complaint: NAUSEA - Chief complaint Chief Complaint: Abd Pain - History obtained from History obtained from: Patient - Additional information Additional information: She was seen here on Sunday and admitted for cholecystitis. She had her gallbladder out and she had an inadvertent small bowel enterotomy that was repaired at the time of surgery as well as her hernia. She was doing well when she left the hospital yesterday but starting yesterday evening started having vomiting and increased pain. Now cannot keep down anything except for small sips of liquids. Has not had a bowel movement since prior to the surgery. No fevers. Review of Systems Ten Systems: 10 systems reviewed and negative Constitutional: reports: Reviewed and negative Nose: reports: Reviewed and negative Throat: reports: Reviewed and negative PD PAST MEDICAL HISTORY - Past Medical History Cardiovascular: None Respiratory: None Neuro: None Endocrine/Autoimmune: None GI: GERD (resolved after lap oscar) : None HEENT: None Psych: Depression, Anxiety, ADD/ADHD Musculoskeletal: None Derm: None - Past Surgical History Past Surgical History: No General: Other (Lap oscar) - Present Medications Home Medications: Ambulatory Orders Medication Instructions Recorded Confirmed Clobetasol Propionate 1 applic TP BID PRN 10/21/19 10/21/19 Etonogestrel [Nexplanon] 68 mg SQ ONCE 10/21/19 10/21/19 Lisdexamfetamine Dimesylate 60 mg PO DAILY 10/21/19 10/21/19 [Vyvanse] Mirtazapine 30 mg PO QPM 10/21/19 10/21/19 risperiDONE [Risperdal] 1 mg PO QPM 10/21/19 10/21/19 Ondansetron Odt [Zofran] 4 mg TL Q6H PRN #14 tablet 04/03/20 oxyCODONE [Roxicodone] 5 - 10 mg PO Q6H PRN #20 tablet 04/03/20 Docusate Sodium 250Mg Capsule 250 mg PO BID #20 capsule 04/13/20 [Colace 250Mg Capsule] Ondansetron Odt [Zofran Odt] 4 mg TL Q6H PRN #10 tablet 04/13/20 oxyCODONE [Roxicodone] 5 mg PO Q4-6H PRN #30 tablet 04/13/20 Ondansetron Odt [Zofran Odt] 4 mg TL Q6H PRN #20 tablet 04/14/20 - Allergies Allergies/Adverse Reactions: Allergies Allergy/AdvReac Type Severity Reaction Status Date / Time No Known Drug Allergies Allergy Verified 04/12/20 12:34 - Social History Does the pt smoke?: No Smoking Status: Former smoker (quit 10 years ago) - Family History Family history: reports: Non contributory PD ED PE NORMAL - Vitals Vital signs reviewed: Yes - General General: Alert and oriented X 3, Other (She appears uncomfortable and is retching) - HEENT HEENT: PERRL, EOMI - Neck Neck: Supple, no meningeal sign, No bony TTP - Cardiac Cardiac: RRR, No murmur - Respiratory Respiratory: No respiratory distress, Clear bilaterally - Abdomen Abdomen: Other (Tympanitic distended abdomen with no bowel sounds, moderate diffuse tenderness. Very mild redness in the umbilical incision) - Back Back: No CVA TTP, No spinal TTP - Derm Derm: Normal color, Warm and dry - Extremities Extremities: No edema, No calf tenderness / cord - Neuro Neuro: Alert and oriented X 3, Normal speech Results - Vitals Vitals: Vital Signs - 24 hr 04/14/20 04/14/20 04/14/20 17:52 17:56 18:26 Temperature 36.3 C L Heart Rate 100 102 H 80 Respiratory 18 20 16 Rate Blood Pressure 147/92 H 159/68 H 144/107 H O2 Saturation 96 100 95 04/14/20 04/14/20 04/14/20 18:56 19:47 20:00 Temperature Heart Rate 80 83 87 Respiratory 16 16 16 Rate Blood Pressure 144/107 H 149/93 H 139/104 H O2 Saturation 95 95 96 04/14/20 04/14/20 20:30 21:00 Temperature Heart Rate 98 101 H Respiratory 16 16 Rate Blood Pressure 148/110 H 147/98 H O2 Saturation 95 95 Oxygen O2 Source Room air - Labs Labs: Laboratory Tests 04/14/20 04/14/20 15:29 15:29 WBC 13.4 H RBC 4.20 Hgb 14.6 Hct 41.0 MCV 97.6 MCH 34.8 H MCHC 35.6 RDW 11.9 L Plt Count 255 MPV 9.3 Neut # (Auto) 11.6 H Lymph # (Auto) 1.1 L [place] # (Auto) 0.5 Eos # (Auto) 0.1 Baso # (Auto) 0.0 Absolute Nucleated RBC 0.00 Nucleated RBC % 0.0 Sodium 132 L Potassium 3.6 Chloride 98 L Carbon Dioxide 24 Anion Gap 10.0 BUN 9 Creatinine 0.6 Estimated GFR (MDRD) 111 Glucose 133 H Calcium 9.6 Magnesium 2.2 Total Bilirubin 0.7 AST 28 ALT 44 Alkaline Phosphatase 66 Total Protein 7.9 Albumin 4.3 Globulin 3.6 Albumin/Globulin Ratio 1.2 Lipase 39 PD MEDICAL DECISION MAKING - ED course ED course: 40-year-old woman postop day 2 after a laparoscopic cholecystectomy with a inadvertent small bowel injury that was repaired now with intractable nausea and vomiting and increased pain. Exam consistent with bowel obstruction. Her surgeon, Dr. 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 Pain and nausea were controlled with divided doses of medications. CT was ordered with oral and IV contrast but patient unable to tolerate the oral contrast. Care to Dr. Jaimes at shift change, with general plan to follow-up on CT and call Dr. Villar at that time who is available at [phone] Departure - Departure Disposition: [facility] DC/Xfer Clinical Impression: Small bowel obstruction Condition: Stable
[2020-04-14 18:36] LABS: BASOPHILS % (AUTO) 0.3 %; EOSINOPHILS # (AUTO) 0.1 10^3/uL (0.0-0.7); EOSINOPHILS % (AUTO) 0.6 %; HGB - HEMOGLOBIN 14.6 g/dL (12.0-16.0); LYMPHOCYTES # (AUTO) 1.1 10^3/uL (1.5-3.5); LYMPHOCYTES % (AUTO) 8.1 %; MEAN CORPUSCULAR HEMOGLOBIN 34.8 pg (27.0-31.0); MEAN CORPUSCULAR HGB CONC 35.6 g/dL (32.0-36.0); MEAN CORPUSCULAR VOLUME 97.6 fL (81.0-99.0); MEAN PLATELET VOLUME 9.3 fL (7.9-10.8); MONOCYTES # (AUTO) 0.5 10^3/uL (0.0-1.0); NEUTROPHILS # (AUTO) 11.6 10^3/uL (1.5-6.6); NEUTROPHILS % (AUTO) 86.5 %; PLT - PLATELET COUNT 255 10^3/uL (130-450); RED CELL DISTRIBUTION WIDTH 11.9 % (12.0-15.0); WHITE BLOOD COUNT 13.4 x10^3/uL (4.8-10.8)
[2020-04-14] MEDS ORDERED: METOCLOPRAMIDE 10 MG/2 ML VIAL IVP STA (18:41)
[2020-04-14 18:46] LABS: ALBUMIN 4.3 g/dL (3.2-5.5); ALBUMIN/GLOBULIN RATIO 1.2 (1.0-2.2); BILIRUBIN,TOTAL 0.7 mg/dL (0.2-1.0); CALCIUM 9.6 mg/dL (8.5-10.3); CREATININE 0.6 mg/dL (0.4-1.0); MAGNESIUM 2.2 mg/dL (1.7-2.8); TOTAL PROTEIN 7.9 g/dL (6.7-8.2)
--- NOTE | 2020-04-14 20:31 | SURGERY HX AND PHYSICAL(T) ---
Surgical History & Physical - Chief Complaint/HPI Chief Complaint: Nausea and vomiting History of Present Illness: Nausea and vomiting after cholecystectomy. Chiara reports she hasn't felt well today. She has had significant nausea and has been unable to vomit due to recent Lori. She denies any fever. She reports her abdomen feels tender superiorly and attributes the pain to wretching. On 04/12 she had a cholecystectomy and umbilical hernia repair. Enterotomy was made upon entering the abdomen and was repaired in two layers with vicryl suture. She reports passing a small amount of flatus twice today. She reported her symptoms to the office and was advised to present to the ED for evaluation. - PMH/PSH/Social Hx Does the pt have a hx of MRSA?: No Neurological History: None Eyes, Ears, Nose, Throat: None Cardiovascular: None Respiratory: None Skin: None Endocrine/Autoimmune: None Gastrointestinal: GERD (resolved after lap oscar) Is Patient ?: No Urinary: None Musculoskeletal: None Blood Disorders: None Psychiatric: Depression, Anxiety, ADD/ADHD General: Other (Lap oscar) Smoking Status: Former smoker (quit 10 years ago) Does the pt drink ETOH?: No Does the pt have substance abuse?: No - Home Meds and Allergies Home Medications: Clobetasol Propionate 1 applic TP BID PRN 10/21/19 Etonogestrel [Nexplanon] 68 mg SQ ONCE 10/21/19 Lisdexamfetamine Dimesylate [Vyvanse] 60 mg PO DAILY 10/21/19 Mirtazapine 30 mg PO QPM 10/21/19 risperiDONE [Risperdal] 1 mg PO QPM 10/21/19 Allergies/Adverse Reactions: Allergies Allergy/AdvReac Type Severity Reaction Status Date / Time No Known Drug Allergies Allergy Verified 04/12/20 12:34 - Review of Systems Constitutional: Poor appetite, Diaphoresis Gastrointestinal: Nausea, Vomiting, Flatus - Vital Signs Heart Rate: 83 Blood Pressure: 149/93 Temperature: 36.3 C Respiratory Rate: 16 O2 Saturation: 95 Weight (kg): 99.79 kg Height: 1.7 m - Physical Exam General Appearance: positive: Alert, Mild distress Eyes Bilatera: positive: Normal inspection, PERRL, EOMI ENT: positive: ENT inspection nml Neck: positive: No JVD, Trachea midline Respiratory: positive: No respiratory distress, Breath sounds nml Cardiovascular: positive: Regular rate & rhythm Peripheral Pulses: positive: 1+ Abdomen: positive: Tenderness, Other (appropriately tender to palpation, dressing are dry and in place, no rebound or guarding) Back: positive: Nml inspection Skin: positive: Color nml Extremities: positive: Non-tender Neurologic/Psychiatric: positive: Oriented x3 - Patient Review Patient Review: Problems were reviewed with the patient during this visit. Medications were reviewed with the patient during this visit. Allergies were reviewed this patient during this visit. Pertinent Tests Reviewed: All pertitent test for this patient were reviewed. - Assessment & Plan Assessment and Plan: CT scan is consistent with small bowel obstruction. I think it is likely swelling at the site of repair of the enterotomy. 1. Admit for bowel rest and decompression 2. Recheck labs in the AM. 3. Nutritional support
--- NOTE | 2020-04-14 20:48 | CT Report ---
PROCEDURE: Abdomen/Pelvis W INDICATIONS: Postop abdominal pain, bowel inj CONTRAST: IV CONTRAST: Optiray 320 ml: 100 PO CONTRAST: Optiray 320 ml50 TECHNIQUE: After the administration of oral and intravenous contrast, 5 mm thick sections acquired from the diap hragms to the symphysis. 5 mm thick coronal and sagittal reformats were acquired. For radiation dos e reduction, the following was used: automated exposure control, adjustment of mA and/or kV accordin g to patient size. COMPARISON: CT abdomen pelvis without contrast, 06/25/2017. FINDINGS: Image quality: Excellent. ABDOMEN: Lung bases: Lung bases are clear. Heart size is normal. Solid organs: Liver and spleen are normal in size and enhancement. Gallbladder is surgically absent . There is a small amount of fluid in the gallbladder fossa. Biliary system is non dilated. Pancrea s enhances normally. No adrenal nodules. Kidneys demonstrate normal size and enhancement, without h ydronephrosis. Peritoneum and bowel: Stomach is distended with an air-fluid level. Proximal small intestine is dila hossein and filled with fluid measuring up to 4.9 cm in diameter. There is a transitional point in mid ab domen. The findings are consistent with small bowel obstruction. No free air. There is a small amou nt of free fluid. Nodes and vessels: No retroperitoneal or mesenteric adenopathy by size criteria. Aorta and inferior vena cava are normal in size. Miscellaneous: No ventral hernias. Surgical clip at the umbilicus. There is stranding in the umbili cus likely secondary to postsurgical sequelae. PELVIS: Genitourinary: Bladder wall thickness is normal. Uterus and the left ovary are normal. Right ovary is not definitively visualized. Miscellaneous: No inguinal hernias or adenopathy. Bones: No suspicious bony lesions. No vertebral body compression fractures. IMPRESSION: 1. Small bowel obstruction. The transitional point is seen in the abdomen. 2. Cholecystectomy. There is a small amount of fluid in the gallbladder fossa, most likely hematoma o r seroma. No rim-enhancing fluid correction to suggest abscess at this time. Reviewed by: Denver Landis MD on 04/14/2020 8:46 PM PDT Approved by: Denver Landis MD on 04/14/2020 8:46 PM PDT Station ID: [id number]
[2020-04-14] MEDS ORDERED: LIDOCAINE VISCOUS 2% 15 ML UDC MM STA (21:01)
[2020-04-14] MEDS ORDERED: ONDANSETRON 4 MG/2 ML VIAL IVP PRN (21:06)
[2020-04-14] MEDS ORDERED: ETONOGESTREL 68 MG SQ SCH (21:15)
[2020-04-14] MEDS: ACETAMINOPHEN 1,000 MG/100 ML 100 ML IV SCH (22:42)
[2020-04-14] MEDS: LACTATED RINGERS 1,000 ML IV SCH (22:42)
[2020-04-14] MEDS: KETOROLAC 30 MG/ML VIAL IVP PRN (23:56)
--- NOTE | 2020-04-15 01:24 | ED Physician Documentation ---
ED Addendum - Addendum Addendum: 04/15/20 01:16 Received s/o from Dr. Shearer. CT reveals SBO. Dr. Villar came to ED, evaluated patient and entered admission orders. Subsequently, ED RN attempted several times to place NGT without success. Bedside CXR shows that the NGT is coiled, likely in esophagus. There is no significant output to wall suction. Both the ED RN and I attempted repositioning by partially withdrawing the NGT and then advancing it, but there continued to be no significant output to wall suction (despite large amount of material noted in stomach on CT), suggesting the NGT was still not in the stomach. NGT removed completely and I then d/w Dr. Solis (happened to be in ED for another patient) and informed him that NGT had not been placed but they were ready for patient on the floor, and he agreed that NGT placement can be attempted once patient gets to the floor.
[2020-04-15] MEDS: HYDROmorphone 0.5 MG/0.5 ML SYRINGE IVP PRN ×4 (03:00→22:15)
[2020-04-15] MEDS: ACETAMINOPHEN 1,000 MG/100 ML 100 ML IV SCH ×3 (04:06→18:09)
[2020-04-15 05:04] LABS: BASOPHILS % (AUTO) 0.3 %; EOSINOPHILS # (AUTO) 0.2 10^3/uL (0.0-0.7); EOSINOPHILS % (AUTO) 1.9 %; HGB - HEMOGLOBIN 13.5 g/dL (12.0-16.0); LYMPHOCYTES # (AUTO) 1.8 10^3/uL (1.5-3.5); LYMPHOCYTES % (AUTO) 15.5 %; MEAN CORPUSCULAR HEMOGLOBIN 34.8 pg (27.0-31.0); MEAN CORPUSCULAR HGB CONC 35.1 g/dL (32.0-36.0); MEAN CORPUSCULAR VOLUME 99.2 fL (81.0-99.0); MEAN PLATELET VOLUME 9.7 fL (7.9-10.8); MONOCYTES # (AUTO) 0.8 10^3/uL (0.0-1.0); MONOCYTES % (AUTO) 6.5 %; NEUTROPHILS # (AUTO) 8.9 10^3/uL (1.5-6.6); NEUTROPHILS % (AUTO) 75.3 %; PLT - PLATELET COUNT 266 10^3/uL (130-450); RED BLOOD COUNT 3.88 10^6/uL (4.20-5.40); WHITE BLOOD COUNT 11.8 x10^3/uL (4.8-10.8)
[2020-04-15 05:17] LABS: ALBUMIN 4.2 g/dL (3.2-5.5); ALBUMIN/GLOBULIN RATIO 1.4 (1.0-2.2); BILIRUBIN,TOTAL 0.9 mg/dL (0.2-1.0); CALCIUM 9.6 mg/dL (8.5-10.3); CREATININE 0.7 mg/dL (0.4-1.0); TOTAL PROTEIN 7.2 g/dL (6.7-8.2)
[2020-04-15] MEDS: PANTOPRAZOLE 40 MG VIAL IVP SCH (06:31)
[2020-04-15] MEDS ORDERED: ONDANSETRON 4 MG/2 ML VIAL IVP PRN (06:45)
[2020-04-15] MEDS: KETOROLAC 30 MG/ML VIAL IVP PRN (07:59)
[2020-04-15] MEDS: SODIUM CHLORIDE FLUSH 0.9% 10 ML SYRINGE IVP SCH ×3 (08:00→17:57)
[2020-04-15] MEDS: LORazepam 2 MG/ML VIAL IVP PRN ×2 (08:19→08:54)
--- NOTE | 2020-04-15 08:32 | XRAY Report ---
PROCEDURE: Chest for Line Placement INDICATIONS: NG tube placement TECHNIQUE: One view of the chest was acquired. COMPARISON: None. FINDINGS: Surgical changes and devices: NG tube tip is seen looped back in the distal esophagus with the tip or iented superiorly within mid to distal esophagus and should be repositioned.. Lungs and pleura: No pleural effusions or pneumothorax. Lungs are clear. Mediastinum: Mediastinal contours appear normal. Heart size is normal. Bones and chest wall: No suspicious bony lesions. Overlying soft tissues appear unremarkable. IMPRESSION: NG tube is seen looped within distal esophagus, should be pulled back and repositioned. No acute card iopulmonary pathology. No discrepancies. Reviewed by: Jaylen Armas MD on 04/15/2020 8:31 AM PDT Approved by: Jaylen Armas MD on 04/15/2020 8:31 AM PDT Station ID: [id number]
[2020-04-15] MEDS ORDERED: BENZOCAINE/TETRACAINE/BUTAMBEN 20 GM TOP ONE (09:00)
[2020-04-15] MEDS: ENOXAPARIN 40 MG/0.4 ML SYRINGE SUBQ SCH (09:27)
[2020-04-15] MEDS: LACTATED RINGERS 1,000 ML IV SCH ×2 (09:28→20:21)
--- NOTE | 2020-04-15 11:03 | PHARMACY PROGRESS NOTE ---
- Best Possible Medication History Admit Date and Time: 04/14/202105 Processed by: Pharmacy Medication History completed: Yes Patient Interview: Completed Secondary Source(s): Insurance records As the person ultimately responsible for medication therapy, providers are able to order a medication from an existing home medication list in [employer] via the "Reconcile Routine" prior to Confirmation of that medication by it application support analyst. Such practice is discouraged except when the physician, in their clinical judgment, deems that a medical need exists for a medication without regard to previous use.
--- NOTE | 2020-04-15 17:18 | PROVIDER PROGRESS NOTE ---
Subjective - Prog Note Date Prog Note Date: 04/15/20 Prog Note Time: 17:21 - Subjective Pt reports feeling: Improved Subjective: Unable to place in the ED or on the Med/Surge floor. Chiara reports she was "miserable" all night. Finally got it in about 9 this morning with near immediate relief. She reports it is "night and day" and she is feeling much better. Passed some flatus today - 3 separate episodes. Current Medications - Current Medications Current Medications: Active Medications Enoxaparin Sodium (Lovenox) 40 mg SUBQ DAILY [facility] Last Admin: 04/15/20 09:27 Dose: 40 mg Documented by: Hydromorphone HCl (Dilaudid Inj Syringe) 0.5 mg IVP Q2H PRN PRN Reason: PAIN Last Admin: 04/15/20 16:08 Dose: 0.5 mg Documented by: Lactated Ringer's (Lr) 1,000 mls @ 100 mls/hr IV .Q10H [facility] Last Admin: 04/15/20 09:28 Dose: 100 mls/hr Documented by: Acetaminophen (Ofirmev) 100 mls @ 400 mls/hr IV Q6H [facility] Last Infusion: 04/15/20 12:41 Dose: Infused Documented by: Ketorolac Tromethamine (Toradol Inj (30mg)) 30 mg IVP Q6H PRN PRN Reason: PAIN Stop: 04/19/20 21:05 Last Admin: 04/15/20 07:59 Dose: 30 mg Documented by: Lorazepam (Ativan Inj (Vial)) 0.5 mg IVP Q1H PRN PRN Reason: Anxiety Last Admin: 04/15/20 08:54 Dose: 0.5 mg Documented by: Ondansetron HCl (Zofran Inj) 4 mg IVP Q4HR PRN PRN Reason: Nausea / Vomiting Last Admin: 04/15/20 06:55 Dose: 4 mg Documented by: Pantoprazole Sodium (Protonix) 40 mg IVP QDAC [facility] Last Admin: 04/15/20 06:31 Dose: 40 mg Documented by: Phenol/Menthol (Chloraseptic) 1 sprays MM Q2HR PRN PRN Reason: Throat Pain Sodium Chloride (Normal Saline Flush 0.9%) 10 ml IVP 0100,0900,1700 [facility] Last Admin: 04/15/20 08:00 Dose: 10 ml Documented by: Sodium Chloride (Normal Saline Flush 0.9%) 10 ml IVP PRN PRN PRN Reason: NEEDED PER PROVIDER ORDERS Throat Lozenges (Cepacol) 1 lozenge MM Q2HR PRN PRN Reason: Throat pain Lisdexamfetamine Dimesylate [Vyvanse] 60 mg PO DAILY 10/21/19 Mirtazapine 30 mg PO QPM 10/21/19 risperiDONE [Risperdal] 1 mg PO QPM 10/21/19 Objective - Vital Signs/Intake & Output Reviewed Vital Signs: Yes Vital Signs: Vital Signs x48h Temp Pulse Resp BP Pulse Ox 04/15/20 15:44 36.7 C 94 18 135/84 H 94 Intake & Output: Intake & Output 04/12/20 04/13/20 04/14/20 04/15/20 23:59 23:59 23:59 23:59 Intake Total 100 1210 Output Total 2800 Balance 100 -1590 - Objective General Appearance: positive: No acute distress, Alert Eyes Bilateral: positive: Normal inspection, PERRL, EOMI Respiratory: positive: No respiratory distress, Breath sounds nml Cardiovascular: positive: Regular rate & rhythm Abdomen: positive: No distention, Other (Minimal tenderness to palpation now. No rebound or guarding. Wounds are clean and well approximated.) Skin: positive: Color nml Extremities: positive: Non-tender Neurologic/Psychiatric: positive: Oriented x3 - Lab Results Fish Bones: 04/15/20 04:25 04/15/20 04:25 Other Labs: Lab Results x24hrs 04/15/20 04/15/20 04/14/20 Range/Units 04:25 04:25 15:29 WBC 11.8 H (4.8-10.8) x10^3/uL RBC 3.88 L (4.20-5.40) 10^6/uL Hgb 13.5 (12.0-16.0) g/dL Hct 38.5 (37.0-47.0) % MCV 99.2 H (81.0-99.0) fL MCH 34.8 H (27.0-31.0) pg MCHC 35.1 (32.0-36.0) g/dL RDW 12.0 (12.0-15.0) % Plt Count 266 (130-450) 10^3/uL MPV 9.7 (7.9-10.8) fL Neut # (Auto) 8.9 H (1.5-6.6) 10^3/uL Lymph # (Auto) 1.8 (1.5-3.5) 10^3/uL [place] # (Auto) 0.8 (0.0-1.0) 10^3/uL Eos # (Auto) 0.2 (0.0-0.7) 10^3/uL Baso # (Auto) 0.0 (0.0-0.1) 10^3/uL Absolute Nucleated RBC 0.00 x10^3/uL Nucleated RBC % 0.0 /100WBC Sodium 133 L 132 L (135-145) mmol/L Potassium 3.4 L 3.6 (3.5-5.0) mmol/L Chloride 96 L 98 L (101-111) mmol/L Carbon Dioxide 25 24 (21-32) mmol/L Anion Gap 12.0 10.0 (6-13) BUN 10 9 (6-20) mg/dL Creatinine 0.7 0.6 (0.4-1.0) mg/dL Estimated GFR (MDRD) 93 111 (>89) Glucose 119 H 133 H (70-100) mg/dL Calcium 9.6 9.6 (8.5-10.3) mg/dL Magnesium 2.2 (1.7-2.8) mg/dL Total Bilirubin 0.9 0.7 (0.2-1.0) mg/dL AST 39 28 (10-42) IU/L ALT 45 44 (10-60) IU/L Alkaline Phosphatase 74 66 (42-121) IU/L Total Protein 7.2 7.9 (6.7-8.2) g/dL Albumin 4.2 4.3 (3.2-5.5) g/dL Globulin 3.0 3.6 (2.1-4.2) g/dL Albumin/Globulin Ratio 1.4 1.2 (1.0-2.2) Lipase 39 (22-51) U/L 04/14/20 Range/Units 15:29 WBC 13.4 H (4.8-10.8) x10^3/uL RBC 4.20 (4.20-5.40) 10^6/uL Hgb 14.6 (12.0-16.0) g/dL Hct 41.0 (37.0-47.0) % MCV 97.6 (81.0-99.0) fL MCH 34.8 H (27.0-31.0) pg MCHC 35.6 (32.0-36.0) g/dL RDW 11.9 L (12.0-15.0) % Plt Count 255 (130-450) 10^3/uL MPV 9.3 (7.9-10.8) fL Neut # (Auto) 11.6 H (1.5-6.6) 10^3/uL Lymph # (Auto) 1.1 L (1.5-3.5) 10^3/uL [place] # (Auto) 0.5 (0.0-1.0) 10^3/uL Eos # (Auto) 0.1 (0.0-0.7) 10^3/uL Baso # (Auto) 0.0 (0.0-0.1) 10^3/uL Absolute Nucleated RBC 0.00 x10^3/uL Nucleated RBC % 0.0 /100WBC Sodium (135-145) mmol/L Potassium (3.5-5.0) mmol/L Chloride (101-111) mmol/L Carbon Dioxide (21-32) mmol/L Anion Gap (6-13) BUN (6-20) mg/dL Creatinine (0.4-1.0) mg/dL Estimated GFR (MDRD) (>89) Glucose (70-100) mg/dL Calcium (8.5-10.3) mg/dL Magnesium (1.7-2.8) mg/dL Total Bilirubin (0.2-1.0) mg/dL AST (10-42) IU/L ALT (10-60) IU/L Alkaline Phosphatase (42-121) IU/L Total Protein (6.7-8.2) g/dL Albumin (3.2-5.5) g/dL Globulin (2.1-4.2) g/dL Albumin/Globulin Ratio (1.0-2.2) Lipase (22-51) U/L
[2020-04-15] MEDS: BENZOCAINE/MENTHOL LOZENGE MM PRN (22:15)
[2020-04-16] MEDS: ACETAMINOPHEN 1,000 MG/100 ML 100 ML IV SCH ×4 (00:41→19:16)
[2020-04-16] MEDS: HYDROmorphone 0.5 MG/0.5 ML SYRINGE IVP PRN ×3 (00:41→03:22)
[2020-04-16] MEDS: SODIUM CHLORIDE FLUSH 0.9% 10 ML SYRINGE IVP SCH ×4 (03:05→23:29)
[2020-04-16] MEDS: LACTATED RINGERS 1,000 ML IV SCH (06:21)
[2020-04-16] MEDS: SODIUM CHLORIDE FLUSH 0.9% 10 ML SYRINGE IVP PRN (07:02)
[2020-04-16] MEDS: PANTOPRAZOLE 40 MG VIAL IVP SCH (07:02)
[2020-04-16] MEDS: KETOROLAC 30 MG/ML VIAL IVP PRN (09:39)
[2020-04-16] MEDS: ENOXAPARIN 40 MG/0.4 ML SYRINGE SUBQ SCH (09:40)
[2020-04-16] MEDS: PHENOL THROAT SPRAY 177 ML MM PRN ×3 (09:40→22:37)
[2020-04-16] MEDS: BENZOCAINE/MENTHOL LOZENGE MM PRN ×3 (09:40→22:37)
--- NOTE | 2020-04-16 10:23 | PROVIDER PROGRESS NOTE ---
Subjective - Prog Note Date Prog Note Date: 04/16/20 Prog Note Time: 10:21 - Subjective Pt reports feeling: Improved Subjective: Chiara denies any abdominal pain. Reports she feels "lots of rumbling" in her abdomen. Passed a little gas this morning. No cramping. Anxious for everything to work again. Objective - Vital Signs/Intake & Output Reviewed Vital Signs: Yes Vital Signs: Vital Signs x48h Temp Pulse Resp BP Pulse Ox 04/16/20 09:50 36.6 C 99 18 131/75 H 93 Intake & Output: Intake & Output 04/13/20 04/14/20 04/15/20 04/16/20 23:59 23:59 23:59 23:59 Intake Total 100 2310 1290 Output Total 3800 3000 Balance 100 -1490 -1710 - Objective General Appearance: positive: No acute distress, Alert Eyes Bilateral: positive: Normal inspection, PERRL ENT: positive: ENT inspection nml Respiratory: positive: No respiratory distress, Breath sounds nml Cardiovascular: positive: Regular rate & rhythm Abdomen: positive: Non-tender, Nml bowel sounds, Other (Wounds are clean and dry and well approximated any erythema) Back: positive: Nml inspection Skin: positive: Color nml Neurologic/Psychiatric: positive: Oriented x3 - Lab Results Fish Bones: 04/15/20 04:25 04/15/20 04:25 Assessment/Plan - Problem List (1) Small bowel obstruction Impression: Improving. 1. Recheck labs 2. Nutrition consult for ppn 3. Blood sugar monitoring and sliding scale insulin coverage
[2020-04-16 10:48] LABS: BASOPHILS % (AUTO) 0.5 %; EOSINOPHILS # (AUTO) 0.2 10^3/uL (0.0-0.7); EOSINOPHILS % (AUTO) 2.6 %; HGB - HEMOGLOBIN 13.1 g/dL (12.0-16.0); LYMPHOCYTES # (AUTO) 1.6 10^3/uL (1.5-3.5); MEAN CORPUSCULAR HEMOGLOBIN 34.2 pg (27.0-31.0); MEAN CORPUSCULAR HGB CONC 34.9 g/dL (32.0-36.0); MEAN CORPUSCULAR VOLUME 97.9 fL (81.0-99.0); MEAN PLATELET VOLUME 9.3 fL (7.9-10.8); MONOCYTES # (AUTO) 0.6 10^3/uL (0.0-1.0); MONOCYTES % (AUTO) 7.5 %; NEUTROPHILS # (AUTO) 5.2 10^3/uL (1.5-6.6); NEUTROPHILS % (AUTO) 67.9 %; PLT - PLATELET COUNT 227 10^3/uL (130-450); RED BLOOD COUNT 3.83 10^6/uL (4.20-5.40); RED CELL DISTRIBUTION WIDTH 11.9 % (12.0-15.0); WHITE BLOOD COUNT 7.6 x10^3/uL (4.8-10.8)
[2020-04-16 10:57] LABS: BUN - BLOOD UREA NITROGEN 13 mg/dL (6-20); CALCIUM 8.8 mg/dL (8.5-10.3); CARBON DIOXIDE - CO2 26 mmol/L (21-32); CHLORIDE 95 mmol/L (101-111); CREATININE 0.6 mg/dL (0.4-1.0); GLUCOSE 101 mg/dL (70-100); SODIUM 135 mmol/L (135-145)
[2020-04-16] MEDS ORDERED: INSULIN ASPART 300 UNIT/3 ML PEN SUBQ SCH (12:00)
[2020-04-16] MEDS: INSU100I18 SUBQ SCH ×3 (12:02→20:59)
[2020-04-16] MEDS ORDERED: D5NS W/20 MEQ KCL 1,000 ML IV SCH ×2 (16:00→20:43)
[2020-04-16] MEDS: POTASSIUM CHLOR 10 MEQ/100 ML 10 MEQ/100 ML BAG IV SCH ×2 (16:28→17:44)
[2020-04-16] MEDS ORDERED: LACTATED RINGERS 500 ML IV PRN (20:24)
[2020-04-17] MEDS: ACETAMINOPHEN 1,000 MG/100 ML 100 ML IV SCH ×5 (01:06→23:55)
[2020-04-17] MEDS: D5NS W/20 MEQ KCL 1,000 ML IV SCH ×2 (01:07→09:14)
[2020-04-17] MEDS: BENZOCAINE/MENTHOL LOZENGE MM PRN ×3 (01:08→09:15)
[2020-04-17 06:02] LABS: CALCIUM 7.9 mg/dL (8.5-10.3); CREATININE 0.6 mg/dL (0.4-1.0)
[2020-04-17] MEDS: PANTOPRAZOLE 40 MG VIAL IVP SCH (06:28)
[2020-04-17] MEDS: INSU100I18 SUBQ SCH ×4 (09:12→21:06)
[2020-04-17] MEDS: SODIUM CHLORIDE FLUSH 0.9% 10 ML SYRINGE IVP SCH ×3 (09:13→23:55)
[2020-04-17] MEDS: ENOXAPARIN 40 MG/0.4 ML SYRINGE SUBQ SCH (09:14)
--- NOTE | 2020-04-17 16:58 | PROVIDER PROGRESS NOTE ---
Subjective - Prog Note Date Prog Note Date: 04/17/20 Prog Note Time: 22:00 - Subjective Pt reports feeling: Improved Subjective: Chiara reports feeling much better. She denies any nausea and reports she had a bowel movement this AM. Denies any pain. Current Medications - Current Medications Current Medications: Enoxaparin Sodium (Lovenox) 40 mg SUBQ DAILY [facility] Last Admin: 04/17/20 09:14 Dose: 40 mg Documented by: Hydromorphone HCl (Dilaudid Inj Syringe) 0.5 mg IVP Q2H PRN PRN Reason: PAIN Last Admin: 04/16/20 03:22 Dose: 0.5 mg Documented by: Acetaminophen (Ofirmev) 100 mls @ 400 mls/hr IV Q6H [facility] Last Admin: 04/17/20 12:26 Dose: Not Given Documented by: Lactated Ringer's (Lr) 500 mls @ 999 mls/hr IV PRN PRN PRN Reason: uo less than 250 ml/shift Insulin Aspart (Novolog) 1 - 9 unit SUBQ 0800,1200,1700,2100 [facility]; Protocol Last Admin: 04/17/20 16:52 Dose: Not Given Documented by: Ketorolac Tromethamine (Toradol Inj (30mg)) 30 mg IVP Q6H PRN PRN Reason: PAIN Stop: 04/19/20 21:05 Last Admin: 04/16/20 09:39 Dose: 30 mg Documented by: Lorazepam (Ativan Inj (Vial)) 0.5 mg IVP Q1H PRN PRN Reason: Anxiety Last Admin: 04/15/20 08:54 Dose: 0.5 mg Documented by: Ondansetron HCl (Zofran Inj) 4 mg IVP Q4HR PRN PRN Reason: Nausea / Vomiting Last Admin: 04/15/20 06:55 Dose: 4 mg Documented by: Pantoprazole Sodium (Protonix) 40 mg IVP QDAC [facility] Last Admin: 04/17/20 06:28 Dose: 40 mg Documented by: Phenol/Menthol (Chloraseptic) 1 sprays MM Q2HR PRN PRN Reason: Throat Pain Last Admin: 04/16/20 22:37 Dose: 1 sprays Documented by: Sodium Chloride (Normal Saline Flush 0.9%) 10 ml IVP 0100,0900,1700 [facility] Last Admin: 04/17/20 09:13 Dose: Not Given Documented by: Sodium Chloride (Normal Saline Flush 0.9%) 10 ml IVP PRN PRN PRN Reason: NEEDED PER PROVIDER ORDERS Last Admin: 04/16/20 07:02 Dose: 10 ml Documented by: Throat Lozenges (Cepacol) 1 lozenge MM Q2HR PRN PRN Reason: Throat pain Last Admin: 04/17/20 09:15 Dose: 1 lozenge Documented by: Objective - Vital Signs/Intake & Output Reviewed Vital Signs: Yes Vital Signs: Vital Signs x48h Pulse Resp BP Pulse Ox 04/17/20 16:10 84 16 142/83 H 97 Intake & Output: Intake & Output 04/14/20 04/15/20 04/16/20 04/17/20 23:59 23:59 23:59 23:59 Intake Total 100 2310 3703.340 2573.75 Output Total 3800 4700 1380 Balance 100 -1490 -992.150 7848.75 - Objective General Appearance: positive: No acute distress, Alert Eyes Bilateral: positive: Normal inspection, PERRL, EOMI ENT: positive: ENT inspection nml Neck: positive: Nml inspection Respiratory: positive: No respiratory distress, Breath sounds nml Cardiovascular: positive: Regular rate & rhythm, No murmur Abdomen: positive: Non-tender, Nml bowel sounds, Other (Wounds are clean and dry) Skin: positive: Color nml Extremities: positive: Non-tender Neurologic/Psychiatric: positive: Oriented x3 - Lab Results Fish Bones: 04/16/20 10:42 04/17/20 05:33 Other Labs: Lab Results x24hrs 04/17/20 04/17/20 04/17/20 Range/Units 16:44 11:08 07:34 Sodium (135-145) mmol/L Potassium (3.5-5.0) mmol/L Chloride (101-111) mmol/L Carbon Dioxide (21-32) mmol/L Anion Gap (6-13) BUN (6-20) mg/dL Creatinine (0.4-1.0) mg/dL Estimated GFR (MDRD) (>89) Glucose (70-100) mg/dL POC Whole Bld Glucose 86 107 H 93 (70 - 100) mg/dL Calcium (8.5-10.3) mg/dL 04/17/20 04/16/20 Range/Units 05:33 20:59 Sodium 135 (135-145) mmol/L Potassium 3.5 (3.5-5.0) mmol/L Chloride 102 (101-111) mmol/L Carbon Dioxide 26 (21-32) mmol/L Anion Gap 7.0 (6-13) BUN 10 (6-20) mg/dL Creatinine 0.6 (0.4-1.0) mg/dL Estimated GFR (MDRD) 111 (>89) Glucose 111 H (70-100) mg/dL POC Whole Bld Glucose 99 (70 - 100) mg/dL Calcium 7.9 L (8.5-10.3) mg/dL Assessment/Plan - Problem List (1) Small bowel obstruction Impression: Improving 1. Remove NGT 2. Advance diet 3. Likely home tomorrow if improvement continues
[2020-04-18] MEDS: PANTOPRAZOLE 40 MG VIAL IVP SCH (06:23)
[2020-04-18] MEDS: ACETAMINOPHEN 1,000 MG/100 ML 100 ML IV SCH (06:23)
[2020-04-18] MEDS: SODIUM CHLORIDE FLUSH 0.9% 10 ML SYRINGE IVP PRN (06:23)
[2020-04-18 07:50] VITALS: BP 134/74
[2020-04-18] MEDS: INSU100I18 SUBQ SCH (08:31)
[2020-04-18] MEDS: ENOXAPARIN 40 MG/0.4 ML SYRINGE SUBQ SCH (08:38)
[2020-04-18] MEDS: SODIUM CHLORIDE FLUSH 0.9% 10 ML SYRINGE IVP SCH (08:38)
--- NOTE | 2020-04-18 10:05 | Discharge Plan ---
Discharge Plan Problem Reviewed?: Yes Disposition: Home, Self Care Condition: Good Diet: Regular Activity Restrictions: lifting limit 15 pounds Shower Restrictions: No Driving Restrictions: Yes (Do not drive while using narcotics) Weight Bearing: Full Weight Instruction Topics: Gallstones, Gallbladder Surg No Smoking: If you smoke, Please STOP! Call for help. Follow-up with: Marisol Gonzalez PA-C [Primary Care Provider] - Ana Luisa Villar MD [Provider Admit Priv/Credential] -
--- NOTE | 2020-04-18 10:08 | DISCHARGE SUMMARY ---
"Discharge Summary Admit Date: 04/14/20 Discharge Date: 04/18/20 Discharging Provider: Jian Primary Care Provider: Marisol Gonzalez Code Status: Attempt Resuscitation Condition at Discharge: Good Discharge Disposition: 01 Home, Self Care - DIAGNOSES Admission Diagnoses: Small bowel obstruction Discharge Diagnoses with Status of Each Condition: Resolved - HPI History of Present Illness: Nausea and vomiting after cholecystectomy. Chiara reports she hasn't felt well today. She has had significant nausea and has been unable to vomit due to recent Lori. She denies any fever. She reports her abdomen feels tender superiorly and attributes the pain to wretching. On 04/12 she had a cholec ystectomy and umbilical hernia repair. Enterotomy was made upon entering the abdomen and was repaired in two layers with vicryl suture. She reports passing a small amount of flatus twice today. She reported her symptoms to the office and was advised to present to the ED for evaluation. - CONSULTS | PROCEDURES Consultations: None Procedures: None - HOSPITAL COURSE Hospital Course: Chiara was admitted for bowel rest, NGT decompression and supportive care. After NG successfully placed, pain resolved. Labs normalized of the following 24-36 hours. On the second hospital day, bowel function returned as demonstrated by flatus and bowel movement. NG was removed and diet advance. No further nausea and vomiting. Has not required any pain medications. She is discharged to her home in the care of her family. She will follow up with the surgery clinic on SundayApril 21 for clip removal, - ALLERGIES Allergies/Adverse Reactions: Allergies Allergy/AdvReac Type Severity Reaction Status Date / Time No Known Drug Allergies Allergy Verified 04/12/20 12:34 - MEDICATIONS Home Medications: Ambulatory Orders Medication Instructions Recorded Confirmed Lisdexamfetamine Dimesylate 60 mg PO DAILY 10/21/19 04/15/20 [Vyvanse] Mirtazapine 30 mg PO QPM 10/21/19 04/15/20 risperiDONE [Risperdal] 1 mg PO QPM 10/21/19 04/15/20 Ondansetron Odt [Zofran Odt] 4 mg TL Q6H PRN #14 tablet 04/03/20 04/15/20 - PHYSICAL EXAM AT DISCHARGE General Appearance: positive: No acute distress, Alert Eyes Bilateral: positive: Normal inspection ENT: positive: ENT inspection nml Neck: positive: Nml inspection Respiratory: positive: No respiratory distress, Breath sounds nml Cardiovascular: positive: Regular rate & rhythm Peripheral Pulses: positive: 1+ Abdomen: positive: Non-tender, Nml bowel sounds, No distention Back: positive: Nml inspection Skin: positive: Color nml Neurologic/Psychiatric: positive: Oriented x3 - LABS Result Diagrams: 04/16/20 10:42 04/17/20 05:33 - QUALITY (Female Hip Fx Only) Was patient sent home on osteoporosis medication?: No - FOLLOW UP Follow Up: SundayApril 21 with [facility] - TIME SPENT Time Spent in Discharge (Minutes): 20"
== END 2020-04-18 11:13 | disposition home or self-care (01) | DRG 390 ==
LOC: ED 17:46 → MS3 21:06 → MS2 04-16 19:01
PROVIDERS: ADMIT Surgery; ATTEND Surgery
DX: K91.30 Postprocedural intestinal obstruction, unspecified as to partial versus complete (principal); Y83.8 Other surgical procedures as the cause of abnormal reaction of the patient, or of later complication, without mention of misadventure at the time of the procedure; Y92.234 Operating room of hospital as the place of occurrence of the external cause; F32.9 Major depressive disorder, single episode, unspecified; F41.9 Anxiety disorder, unspecified; F90.2 Attention-deficit hyperactivity disorder, combined type; Z79.899 Other long term (current) drug therapy; Z87.891 Personal history of nicotine dependence
CPT/HCPCS: 36415; 71045; 74177; 80048; 80053; 83690; 83735; 85025; 96374; 96375; 96376; 99285; A9270; J0131; J1170; J1650; J2060; J2765; J7120; Q9967

== ENCOUNTER 2020-10-04 15:41 | Outpatient (CLI) | payer MEDICAID ==
[2020-10-04 20:03] LABS: BASOPHILS % (AUTO) 0.5 %; EOSINOPHILS # (AUTO) 0.1 10^3/uL (0.0-0.7); EOSINOPHILS % (AUTO) 1.4 %; LYMPHOCYTES # (AUTO) 2.2 10^3/uL (1.5-3.5); LYMPHOCYTES % (AUTO) 34.1 %; MEAN CORPUSCULAR HEMOGLOBIN 33.9 pg (27.0-31.0); MEAN CORPUSCULAR HGB CONC 34.2 g/dL (32.0-36.0); MEAN CORPUSCULAR VOLUME 99.2 fL (81.0-99.0); MEAN PLATELET VOLUME 10.3 fL (7.9-10.8); MONOCYTES # (AUTO) 0.4 10^3/uL (0.0-1.0); MONOCYTES % (AUTO) 6.3 %; NEUTROPHILS # (AUTO) 3.7 10^3/uL (1.5-6.6); NEUTROPHILS % (AUTO) 57.4 %; PLT - PLATELET COUNT 217 10^3/uL (130-450); RED BLOOD COUNT 3.83 10^6/uL (4.20-5.40); WHITE BLOOD COUNT 6.5 x10^3/uL (4.8-10.8)
[2020-10-04 20:37] LABS: HEMOGLOBIN A1c% 5.2 % (4.27-6.07)
== END 2020-10-04 15:42 | disposition home or self-care (01) ==
LOC: LAB.S 15:41
PROVIDERS: ATTEND Registered Nurse
DX: R53.82 Chronic fatigue, unspecified (principal); G47.9 Sleep disorder, unspecified; F41.1 Generalized anxiety disorder; E03.9 Hypothyroidism, unspecified
CPT/HCPCS: 36415; 83036; 84443; 85025

== ENCOUNTER 2020-11-03 15:19 | Outpatient (CLI) | payer MEDICAID ==
[2020-11-03 16:11] VITALS: BP 130/89
--- NOTE | 2020-11-03 16:11 | SLEEP CARE CONSULTATION ---
Information from patient questionnaire entered by Traci Spears. I have reviewed and concur with the information entered by Traci Spears. This document represents the service I personally performed and the decisions made by me, Lorrie Griffiths ARNP. History of Present Illness Service Date and Time: 11/03/2020 1519 Reason for Visit: New patient Chief Complaint: reports: Unrefreshed sleep, Snoring (rarely, mouth breather), Excessive daytime sleepiness, Fatigue, Frequent awakenings at night. denies: Observed pauses in breathing Date of Onset: Many years, 15 + Usual bedtime: 10:30 - 11:30 Time it takes to fall asleep: 10 - 25 min Snores at night: No Observed to quit breathing while asleep: No Sleeps alone due to snoring: No Number of times waking at night: 4 - 10 Reasons for waking at night: reports: Snoring, Bathroom, Other (Thirsty, no reason). denies: Choking, Gasping for air Toss, Turn, or Twitch while sleeping: Yes Recalls having dreams: Yes Usually gets out of bed at: 8:30 - 10:00 Feels refreshed in the morning: No Morning headache: Yes (2-3 times a week, last 1 hour or needs meds) Sleepy or fatigued during the day: Yes Ever fallen asleep while driving: Yes (no accidents, drowsy driving) Takes day naps: No Dreams during day naps: No Prior sleep studies: No Additional HPI information: I had the pleasure of seeing KAUR TITUS today regarding the possibility of her having a sleep disorder. Her current complaints are frequent night awakenings, unrefreshed sleep, excessive daytime sleepiness and fatigue. She has had trouble sleeping since she was in high school. She has tried several sleeping medications that help for about 4 hours and then she continues to wake up a lot. She also thinks she has restless legs syndrome. Her PCP sent her for evaluation due to being on sleep medications for so long. She states she ruminates at night on things and is not able to shut mind down to sleep, even when she was a little child. - Parasomnia Symptoms Ever been unable to move upon waking from sleep: No Walks in sleep: Yes (when little) Talks in sleep: Yes (when little would talk to sibling) Ever acted out dreams in sleep: No Ever felt weak in the knees when startled or emotional: Yes (never fallen to ground) Bothered by creepy, crawly, restless sensations in legs: Yes (throughout day when sedentary and worse at night) Problems with memory or concentration: Yes (both, "fog brain" all the time) Subjective Initial [place] Sleepiness Scale score: 10 (in 2020) Past Medical History Past Medical History: reports: Hypertension, Claustrophobia, Arthritis, Insulin resistance, Hypothyroidism, Anxiety, Depression, Mood disorder (PTSD, Bipolar), GERD, Attention deficit Social History 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 Patient is and lives in [place]. Have you smoked in the past 12 months: No Cigarettes per day (20/pack): 10 Years of smokin Quit date: 2008 Smoking Pack Years: 5.0 Alcohol use: Yes Alcohol amount and frequency: 1 - 4, once in a while, 3 times this month Caffeine use: Yes Caffeine amount and frequency: 1 - 2 a day Family History Family history of sleep disordered breathing: No Family Hx Sleep Apnea: Father: Snoring Allergies and Home Medications Drug allergies reviewed: Yes (NKDA) Home medication list reviewed: Yes Allergy and home medication list: Bupropion 150 mg Q AM Metformin 500 mg Q day Mirtazapine 30 mg to help her sleep "Sleep" night powder: L-glycine 3000 mg Ltyphopin 250 mg L-Theonie 200 mg L-5-HTP 100 mg Melatonin 1 mg Review of Systems Weight gain over past 5 years: 20 Cardiovascular: reports: irregular heart rate or pulse Gastrointestinal: reports: heartburn, difficulty swallowing, nausea, vomitting, diarrhea, abdominal pain Urinary: reports: incontinence, frequency, urgency Neurological: reports: headaches Psychiatric: reports: anxiety, depression, mood disorder, claustrophobia Ear/Nose/Throat: reports: nasal congestion, nose bleeds, dry mouth/throat, wisdom teeth removed. denies: tonsillectomy Endocrine: reports: thyroid disease, sluggishness (tired), too hot or cold, excessive thirst, increased appetite, increased urination, unexplained weakness Musculoskeletal: reports: joint pain, neck pain, back pain, muscle pain or cramping Immunologic: reports: allergies to food or environment (whey allergy) Physical Exam Blood Pressure: 130/89 Cuff size: wrist Heart Rate: 85 O2 Saturation: 99 Height: 5 ft 7 in Weight: 227 lb Body Mass Index: 35.5 BMI Classification: Obese Neck circumference: 15.25 (inches) Nostrils: patent to airflow Turbinates: swollen Mouth and throat: narrow oropharynx Soft palate: long Hard palate: normal Uvula: normal Uvula visualization: 100% Mallampati Class I Tongue: enlarged in size with teeth linn on lateral edges Tonsils: small Neck: normal w/o lymphadenopathy or thyromegaly Heart: regular rate and rhythm Lungs: clear bilaterally Impression and Plan 1. Suspected Obstructive Sleep Apnea-Hypopnea Syndrome, as suggested by a history of irregular snoring, morning headache, frequent awakening during the night, unrefreshed sleep, cognitive impairment, and excessive daytime sleepiness. Narrow oropharynx and obesity are common predisposing factors for obstructive sleep apnea-hypopnea syndrome. I recommend proceeding to poly somnography to confirm the diagnosis and to assess severity. If the patient has significant sleep disordered breathing, a manual CPAP titration study will also be performed to find the optimal treatment pressure. I informed the patient of what the sleep studies involve and after some discussion, obtained agreement to proceed. The pathophysiology of obstructive sleep apnea-hypopnea syndrome was discussed with the patient and health risks of cardiovascular and cerebrovascular disease if not treated. 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 Patient agreed to plan. * Schedule polysomnography +- manual CPAP titration study and return in 1-2 weeks after the study to discuss result and initiate therapy. * Avoid long distance driving or driving when feeling sleepy. * Avoid alcohol, sedative and muscle relaxant around bedtime. * Attempt to lose weight. * Review instructions provided by trained office staff on how to prepare for the sleep study. * Return for follow-up after sleep study completed. Counseling Topics: Weight loss health impact Visit Type: In Office Time Spent with Patient (minutes): 33 Provider Statement: I spent 100% of the Face to Face Visit with the patient with greater than 50% spent counseling the patient and coordination of care.
== END 2020-11-03 15:20 | disposition home or self-care (01) ==
LOC: SC 15:19
PROVIDERS: ATTEND Nurse Practitioner Family
DX: G47.10 Hypersomnia, unspecified (principal); R41.89 Other symptoms and signs involving cognitive functions and awareness; G47.8 Other sleep disorders; R51.9 Headache, unspecified; R06.83 Snoring; E66.9 Obesity, unspecified; Z68.35 Body mass index [BMI] 35.0-35.9, adult
CPT/HCPCS: 99203; 99212

== ENCOUNTER 2020-12-16 08:51 | Outpatient (CLI) | payer MEDICAID ==
[2020-12-16 16:23] LABS: BASOPHILS % (AUTO) 0.2 %; EOSINOPHILS # (AUTO) 0.1 10^3/uL (0.0-0.7); EOSINOPHILS % (AUTO) 1.1 %; HCT - HEMATOCRIT 37.4 % (37.0-47.0); HGB - HEMOGLOBIN 12.7 g/dL (12.0-16.0); LYMPHOCYTES # (AUTO) 1.5 10^3/uL (1.5-3.5); LYMPHOCYTES % (AUTO) 32.9 %; MEAN CORPUSCULAR HEMOGLOBIN 33.7 pg (27.0-31.0); MEAN CORPUSCULAR VOLUME 99.2 fL (81.0-99.0); MEAN PLATELET VOLUME 10.3 fL (7.9-10.8); MONOCYTES # (AUTO) 0.3 10^3/uL (0.0-1.0); MONOCYTES % (AUTO) 6.8 %; NEUTROPHILS # (AUTO) 2.7 10^3/uL (1.5-6.6); NEUTROPHILS % (AUTO) 58.8 %; PLT - PLATELET COUNT 182 10^3/uL (130-450); RED BLOOD COUNT 3.77 10^6/uL (4.20-5.40); RED CELL DISTRIBUTION WIDTH 11.8 % (12.0-15.0); WHITE BLOOD COUNT 4.6 x10^3/uL (4.8-10.8)
[2020-12-16 16:48] LABS: ALBUMIN 4.4 g/dL (3.2-5.5); ALBUMIN/GLOBULIN RATIO 1.5 (1.0-2.2); BILIRUBIN,TOTAL 1.2 mg/dL (0.2-1.0); CREATININE 0.6 mg/dL (0.4-1.0); POTASSIUM 3.7 mmol/L (3.5-5.0); TOTAL PROTEIN 7.3 g/dL (6.7-8.2)
[2020-12-16 17:08] LABS: CHOL/HDL RATIO 1.8 (<4.4); CHOLESTEROL 157 mg/dL; HDL CHOLESTEROL 88 mg/dL; LDL CHOLESTEROL,CALCULATED 56 mg/dL; LDL/HDL RATIO 0.6 (<4.4); TRIGLYCERIDES 66 mg/dL; VLDL CHOLESTEROL 13 mg/dL
== END 2020-12-16 08:52 | disposition home or self-care (01) ==
LOC: LAB.S 08:51
PROVIDERS: ATTEND Obstetrics & Gynecology
DX: R73.01 Impaired fasting glucose (principal); Z13.1 Encounter for screening for diabetes mellitus; R10.84 Generalized abdominal pain; Z13.220 Encounter for screening for lipoid disorders; R32 Unspecified urinary incontinence; Z13.21 Encounter for screening for nutritional disorder; R68.82 Decreased libido; R53.83 Other fatigue
CPT/HCPCS: 36415; 80053; 80061; 81001; 82150; 82306; 83690; 83721; 85025; 87086

== ENCOUNTER 2020-12-17 08:00 | Outpatient (CLI) | payer MEDICAID ==
[2020-12-17 17:11] LABS: BILIRUBIN,URINE NEGATIVE (NEGATIVE); GLUCOSE, URINE (UA) NEGATIVE (NEGATIVE); KETONES,URINE (UA) NEGATIVE (NEGATIVE); LEUKOCYTE ESTERASE, URINE NEGATIVE (NEGATIVE); NITRITE,URINE NEGATIVE (NEGATIVE); OCCULT BLOOD,URINE SMALL (NEGATIVE); PROTEIN,URINE NEGATIVE (NEGATIVE); UROBILINOGEN,URINE 0.2 (NORMAL) E.U./dL (NORMAL)
[2020-12-17 17:13] LABS: CLARITY,URINE CLOUDY (CLEAR)
[2020-12-17 17:19] LABS: AMORPHOUS SEDIMENT,UR Marked /LPF; BACTERIA,URINE None Seen /HPF (None Seen); RBC,URINE 0-5 /HPF (0-5); SQUAMOUS EPITHELIAL CELL,UR FEW Squamous (<= Few); WBC,URINE 0-3 /HPF (0-5)
== END 2020-12-17 23:59 | disposition home or self-care (01) ==
LOC: LAB.S 08:00
PROVIDERS: ATTEND Obstetrics & Gynecology
DX: R32 Unspecified urinary incontinence (principal)
CPT/HCPCS: 81001; 81003; 87086

== ENCOUNTER 2020-12-25 08:00 | Outpatient (CLI) | payer MEDICAID ==
[2020-12-25 19:00] LABS: FECAL OCCULT BLOOD (FIT) NEGATIVE (NEGATIVE)
[2020-12-25 19:13] LABS: BILIRUBIN,URINE NEGATIVE (NEGATIVE); GLUCOSE, URINE (UA) NEGATIVE (NEGATIVE); KETONES,URINE (UA) NEGATIVE (NEGATIVE); LEUKOCYTE ESTERASE, URINE NEGATIVE (NEGATIVE); NITRITE,URINE NEGATIVE (NEGATIVE); OCCULT BLOOD,URINE SMALL (NEGATIVE); PROTEIN,URINE NEGATIVE (NEGATIVE); UROBILINOGEN,URINE 0.2 (NORMAL) E.U./dL (NORMAL)
[2020-12-25 19:14] LABS: CLARITY,URINE HAZY (CLEAR)
[2020-12-25 19:29] LABS: WBC,URINE 0-3 /HPF (0-5)
[2020-12-25 19:30] LABS: AMORPHOUS SEDIMENT,UR Marked /LPF; BACTERIA,URINE None Seen /HPF (None Seen); CRYSTALS,URINE 0-2 Calcium Oxalate /LPF; SQUAMOUS EPITHELIAL CELL,UR NONE SEEN (<= Few)
== END 2020-12-25 23:59 | disposition home or self-care (01) ==
LOC: LAB.S 08:00
PROVIDERS: ATTEND Registered Nurse
DX: R31.9 Hematuria, unspecified (principal); R19.7 Diarrhea, unspecified; R10.84 Generalized abdominal pain
CPT/HCPCS: 81001; 81599; 82274; 83630; 87045; 87046; 87086; 87177; 87205; 87209; 87427; 87493

== ENCOUNTER 2020-12-29 11:01 | Outpatient (CLI) | payer MEDICAID ==
[2020-12-29 15:05] LABS: CREATININE 0.6 mg/dL (0.4-1.0)
== END 2020-12-29 11:02 | disposition home or self-care (01) ==
LOC: LAB.S 11:01
PROVIDERS: ATTEND Registered Nurse
DX: R31.9 Hematuria, unspecified (principal); E55.9 Vitamin D deficiency, unspecified; R19.7 Diarrhea, unspecified; R10.84 Generalized abdominal pain
CPT/HCPCS: 36415; 82565

== ENCOUNTER 2021-01-05 07:29 | Outpatient (CLI) | payer MEDICAID ==
[2021-01-05] MEDS ORDERED: IOVERSOL 320 100 ML VIAL IVP ONE ×2 (07:56→09:11)
[2021-01-05] MEDS ORDERED: IOPAMIDOL-300 50 ML VIAL ONE (07:56)
[2021-01-05] MEDS ORDERED: IOPAMIDOL-300 50 ML VIAL PO ONE (09:11)
--- NOTE | 2021-01-05 10:44 | CT Report ---
PROCEDURE: Abdomen/Pelvis W INDICATIONS: ABD COLIC, DIARRHEA ACUTE CONTRAST: IV CONTRAST: Optiray 320 ml: 100 PO CONTRAST: Isovue 300 ml50 TECHNIQUE: After the administration of IV contrast, 5 mm thick sections acquired from the diaphragms to the symp hysis. 5 mm thick coronal and sagittal reformats were acquired. For radiation dose reduction, the f ollowing was used: automated exposure control, adjustment of mA and/or kV according to patient size. COMPARISON: None. FINDINGS: ABDOMEN: Lung bases: Normal Hepatic steatosis. Spleen: Normal Gallbladder: Absent. Bile ducts: Normal Pancreas: Normal Adrenals: Normal Kidneys: Normal There is mild right colonic and cecal wall thickening, with mild adjacent plantar stranding in the fa t. No free fluid or air. Normal appendix. Abdominal nodes: Normal Aorta: Normal IVC: Normal No ventral hernias PELVIS: Bladder: Normal. Presumed physiologic follicular change within both ovaries. Pelvic nodes: Normal Groin: Normal Bones: No vertebral body compression fracture. No suspicious bone lesion. IMPRESSION: Mild diffuse long segment mural thickening involving the cecum and right colon suggestive of infectio us or inflammatory colitis. Normal appearance of the appendix Hepatic steatosis Reviewed by: Hermes Heath MD on 01/05/2021 10:43 AM PDT Approved by: Hermes Heath MD on 01/05/2021 10:43 AM PDT Station ID: [id number]
== END 2021-01-05 07:30 | disposition home or self-care (01) ==
LOC: DI 07:29
PROVIDERS: ATTEND Registered Nurse
DX: K63.89 Other specified diseases of intestine (principal); K76.0 Fatty (change of) liver, not elsewhere classified
CPT/HCPCS: 74177; Q9967

== ENCOUNTER 2021-01-20 08:00 | Outpatient (CLI) | payer MEDICAID ==
[2021-01-20 13:39] LABS: H. PYLORIS ANTIGEN STL NEGATIVE (Negative)
== END 2021-01-20 23:59 | disposition home or self-care (01) ==
LOC: LAB.R 08:00
PROVIDERS: ATTEND Physician Assistant
DX: R19.7 Diarrhea, unspecified (principal); R10.13 Epigastric pain; Z86.19 Personal history of other infectious and parasitic diseases; R10.9 Unspecified abdominal pain
CPT/HCPCS: 81599; 82705; 83520; 87338

== ENCOUNTER 2021-03-08 12:51 | Outpatient (CLI) | payer MEDICAID | END 2021-03-08 12:52 | disposition home or self-care (01) | LOC: LAB.S 12:51 | PROVIDERS: ATTEND Obstetrics & Gynecology | DX: E55.9 Vitamin D deficiency, unspecified (principal); R35.0 Frequency of micturition; R31.9 Hematuria, unspecified | CPT/HCPCS: 82306; 87086; 87181 ==

== ENCOUNTER 2021-04-15 13:05 | Emergency (ER) | payer MEDICAID ==
[2021-04-15 13:53] LABS: BASOPHILS % (AUTO) 0.3 %; EOSINOPHILS # (AUTO) 0.1 10^3/uL (0.0-0.7); EOSINOPHILS % (AUTO) 0.9 %; HCT - HEMATOCRIT 37.8 % (37.0-47.0); HGB - HEMOGLOBIN 13.3 g/dL (12.0-16.0); LYMPHOCYTES # (AUTO) 1.9 10^3/uL (1.5-3.5); LYMPHOCYTES % (AUTO) 27.5 %; MEAN CORPUSCULAR HEMOGLOBIN 35.3 pg (27.0-31.0); MEAN CORPUSCULAR HGB CONC 35.2 g/dL (32.0-36.0); MEAN CORPUSCULAR VOLUME 100.3 fL (81.0-99.0); MEAN PLATELET VOLUME 9.7 fL (7.9-10.8); MONOCYTES # (AUTO) 0.4 10^3/uL (0.0-1.0); MONOCYTES % (AUTO) 5.3 %; NEUTROPHILS # (AUTO) 4.5 10^3/uL (1.5-6.6); NEUTROPHILS % (AUTO) 65.7 %; PLT - PLATELET COUNT 205 10^3/uL (130-450); RED BLOOD COUNT 3.77 10^6/uL (4.20-5.40); RED CELL DISTRIBUTION WIDTH 12.7 % (12.0-15.0); WHITE BLOOD COUNT 6.8 x10^3/uL (4.8-10.8)
[2021-04-15 14:07] LABS: ALBUMIN 4.7 g/dL (3.2-5.5); ALBUMIN/GLOBULIN RATIO 1.5 (1.0-2.2); BILIRUBIN,TOTAL 1.1 mg/dL (0.2-1.0); CALCIUM 9.2 mg/dL (8.5-10.3); CREATININE 0.6 mg/dL (0.4-1.0); POTASSIUM 3.7 mmol/L (3.5-5.0); TOTAL PROTEIN 7.9 g/dL (6.7-8.2)
[2021-04-15] MEDS ORDERED: KETOROLAC 30 MG/ML VIAL IVP STA (14:51)
[2021-04-15] MEDS ORDERED: HYDROmorphone 1 MG/ML CARPUJECT IVP STA (14:51)
--- NOTE | 2021-04-15 14:52 | ED Physician Documentation ---
PD HPI ABD PAIN - Stated complaint Stated Complaint: ABD PX - Chief complaint Chief Complaint: Abd Pain - History obtained from History obtained from: Patient - Additional information Additional information: 41-year-old woman with cholecystectomy a year ago and remote tubal ligation presents with severe sudden onset right pelvic pain radiating to the low back around noon today. It is associated with nausea but she notes she cannot vomit due to history of Lori fundoplication. She is on her menses now and the timing and flow are normal. Had a history of ovarian cyst at age 16 which she does not remember. Also history of renal colic and this is not reminiscent of that. Review of Systems Ten Systems: 10 systems reviewed and negative Constitutional: reports: Reviewed and negative Eyes: reports: Reviewed and negative Ears: reports: Reviewed and negative Nose: reports: Reviewed and negative Throat: reports: Reviewed and negative PD PAST MEDICAL HISTORY - Past Medical History Cardiovascular: None Respiratory: None Neuro: None Endocrine/Autoimmune: None GI: GERD, Hiatal hernia, Cholelithiasis : None HEENT: None Psych: Depression, Anxiety, ADD/ADHD Musculoskeletal: None Derm: None - Past Surgical History Past Surgical History: No General: Cholecystectomy, Hiatal hernia repair, 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 - Present Medications Home Medications: Ambulatory Orders Medication Instructions Recorded Confirmed HYDROcod/ACETAM 5/325 [[place] 5/325] 1 - 2 tab PO Q6H PRN #15 tablet 04/15/21 metFORMIN [Glucophage] 500 mg PO BID 04/15/21 04/15/21 traZODone [Desyrel] 50 mg PO HS 04/15/21 04/15/21 - Allergies Allergies/Adverse Reactions: Allergies Allergy/AdvReac Type Severity Reaction Status Date / Time No Known Drug Allergies Allergy Verified 04/12/20 12:34 - Social History Does the pt smoke?: No Smoking Status: Former smoker Does the pt drink ETOH?: No Does the pt have substance abuse?: No PD ED PE NORMAL - Vitals Vital signs reviewed: Yes - General General: Alert and oriented X 3 (She appears uncomfortable and is pacing) - HEENT HEENT: PERRL, EOMI - Neck Neck: Supple, no meningeal sign, No bony TTP - Cardiac Cardiac: RRR, No murmur - Respiratory Respiratory: No respiratory distress, Clear bilaterally - Abdomen Abdomen: Normal bowel sounds, Other (Minimal right pelvic tenderness without surgical signs) - Back Back: No CVA TTP - Derm Derm: Normal color, Warm and dry - Extremities Extremities: No edema, No calf tenderness / cord - Neuro Neuro: Alert and oriented X 3, Normal speech Results - Vitals Vitals: Vital Signs - 24 hr 04/15/21 04/15/21 13:25 16:45 Temperature 36.2 C L 36.9 C Heart Rate 88 84 Respiratory 18 18 Rate Blood Pressure 146/94 H 153/101 H O2 Saturation 100 98 Oxygen O2 Source Room air - Labs Labs: Laboratory Tests 04/15/21 04/15/21 04/15/21 13:43 13:48 13:48 WBC 6.8 RBC 3.77 L Hgb 13.3 Hct 37.8 MCV 100.3 H MCH 35.3 H MCHC 35.2 RDW 12.7 Plt Count 205 MPV 9.7 Neut # (Auto) 4.5 Lymph # (Auto) 1.9 Wagoner # (Auto) 0.4 Eos # (Auto) 0.1 Baso # (Auto) 0.0 Absolute Nucleated RBC 0.00 Nucleated RBC % 0.0 Sodium 136 Potassium 3.7 Chloride 103 Carbon Dioxide 23 Anion Gap 10.0 BUN 10 Creatinine 0.6 Estimated GFR (MDRD) 110 Glucose 101 H Calcium 9.2 Total Bilirubin 1.1 H AST 24 ALT 23 Alkaline Phosphatase 54 Total Protein 7.9 Albumin 4.7 Globulin 3.2 Albumin/Globulin Ratio 1.5 Lipase 25 Urine Color STRAW Urine Clarity CLEAR Urine pH 6.0 Ur Specific [place] <=1.005 Urine Protein NEGATIVE Urine Glucose (UA) NEGATIVE Urine Ketones NEGATIVE Urine Occult Blood SMALL H Urine Nitrite NEGATIVE Urine Bilirubin NEGATIVE Urine Urobilinogen 0.2 (NORMAL) Ur Leukocyte Esterase NEGATIVE Urine RBC 0-5 Urine WBC 0-3 Ur Squamous Epith Cells RARE Squamous Urine Bacteria Rare Ur Microscopic Review INDICATED Urine Culture Comments NOT INDICATED Urine HCG, Qual NEGATIVE PD MEDICAL DECISION MAKING - ED course ED course: 41-year-old woman presents with right-sided pelvic pain, its acute in onset and therefore the history is inconsistent with appendicitis, no leukocytosis, no evidence of . Pelvic ultrasound shows bilateral small ovarian cyst. No ovarian no ovarian torsion. Feeling better after pain medication here. I am prescribing a short course of short-acting opioid pain medication for this patient. 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 I have discussed that the opioids are for short term therapy only, and will not be refilled from the ED. Departure - Departure Disposition: 01 Home, Self Care Clinical Impression: Pelvic pain Condition: Good Record reviewed to determine appropriate education?: Yes Instructions: ED Pelvic Pain [facility] Follow-Up: Fabiola Bridges MD [Provider Admit Priv/Credential] - Prescriptions: HYDROcod/ACETAM 5/325 [[place] 5/325] 1 - 2 tab PO Q6H PRN #15 tablet PRN Reason: Pain Comments: You do have some small bilateral cysts, this is likely with causing her pain. If pain is mild you can take ibuprofen available [id number]. If pain is more significant you can take prescription pain medication. Follow-up with Dr. Bridges in a week or 2. Return for new worsening or unforgiving pain or new symptoms. I am prescribing a short course of narcotic pain medication for you. These are potentially dangerous and addictive medications that should be used carefully. These medications may constipate you. Take an fpao-sji-xaldttb stool softener (docusate) twice daily with plenty of water while taking these medications. If you go 24 hours without a bowel movement, take [id number] miralax, per package instructions. Do not drink or drive while taking these medications. If you received narcotic or sedating medications while in the emergency department, do not drive for 24 hours. Store this medication in a safe, secure place and out of reach of children. It is a violation of federal law to give or sell this medication to another person or to use in a manner other than prescribed. The ED will not refill narcotic prescriptions, including prescriptions lost or stolen. To dispose of unwanted medications: 1. [facility] at [address] in [place] has a medication drop box. They accept prescription medications (in pill form) Sunday through Sunday 9:00 a.m. to 5:00 p.m. 2. The [facility] accepts prescription medications (in pill form only) for disposal year round. Call for more information. 3. Contact the [facility] for the next [facility] sponsored prescription drug collection event. , [phone], or [phone]; Note that many narcotic pain relievers also contain Tylenol/acetaminophen. Please ensure that your total dose of acetaminophen from all sources does not exceed 3 g (3000 mg) per day. Discharge Date/Time: 04/15/21 16:51
[2021-04-15 15:49] LABS: BILIRUBIN,URINE NEGATIVE (NEGATIVE); GLUCOSE, URINE (UA) NEGATIVE (NEGATIVE); KETONES,URINE (UA) NEGATIVE (NEGATIVE); LEUKOCYTE ESTERASE, URINE NEGATIVE (NEGATIVE); NITRITE,URINE NEGATIVE (NEGATIVE); OCCULT BLOOD,URINE SMALL (NEGATIVE); PROTEIN,URINE NEGATIVE (NEGATIVE); UROBILINOGEN,URINE 0.2 (NORMAL) E.U./dL (NORMAL)
[2021-04-15 15:50] LABS: CLARITY,URINE CLEAR (CLEAR)
[2021-04-15 15:51] LABS: HCG UR QUAL NEGATIVE
[2021-04-15] MEDS ORDERED: KETOROLAC 15 MG/ML VIAL IM STA (15:54)
[2021-04-15] MEDS ORDERED: HYDROmorphone 1 MG/ML CARPUJECT IM STA (15:54)
[2021-04-15 15:58] LABS: BACTERIA,URINE Rare /HPF (None Seen); RBC,URINE 0-5 /HPF (0-5); SQUAMOUS EPITHELIAL CELL,UR RARE Squamous (<= Few); WBC,URINE 0-3 /HPF (0-5)
[2021-04-15 16:46] VITALS: BP 153/101
--- NOTE | 2021-04-15 16:59 | Ultrasound Report ---
PROCEDURE: Pelvic w/Transvag+Doppler Comp INDICATIONS: R pelvic pain TECHNIQUE: Real-time scanning was performed of the pelvic organs, with image documentation. Additional endovagi nal scanning was necessary due to incomplete visualization of the adnexal and endometrial structures by transabdominal scanning. COMPARISON: None. FINDINGS: No pathologic free abdominal or pelvic fluid. Uterus: Uterus is normal in size at 8.3 x 3.8 x 4.5 cm. The endometrium measures 4.4 mm in combined thickness. Ovaries: Right ovary measures 4.9 x 3.6 x 2.9 cm, volume 27.1 cc. Left ovary measures 4.6 x 2.2 x 3. 4 cm, volume 18.1 cc. Bilateral low echogenic foci are present within the ovaries the largest on the right measuring 2.4 x 1.6 x 1.7 cm and the largest on the left measuring 2.1 x 1.7 x 2.0 cm. IMPRESSION: 1. Bilateral small ovarian cysts. Reviewed by: Joy Cade MD on 04/15/2021 4:57 PM PDT Approved by: Joy Cade MD on 04/15/2021 4:57 PM PDT Station ID: [id number]
== END 2021-04-15 16:51 | disposition home or self-care (01) ==
LOC: ED 13:05
DX: R10.2 Pelvic and perineal pain (principal); N83.202 Unspecified ovarian cyst, left side; N83.201 Unspecified ovarian cyst, right side; Z87.891 Personal history of nicotine dependence
CPT/HCPCS: 36415; 76830; 76856; 80053; 81001; 81025; 83690; 85025; 93975; 96372; 99284; J1170; 81003; 87086

== ENCOUNTER 2021-05-09 17:04 | Outpatient (CLI) | payer MEDICAID ==
--- NOTE | 2021-05-10 14:24 | XRAY Report ---
PROCEDURE: Foot 2 View RT INDICATIONS: HEEL PAIN, RIGHT TECHNIQUE: 2 views of the foot were acquired. COMPARISON: X-ray right foot, 3 views, 02/24/2016 and 03/14/2016. FINDINGS: Bones: No fractures or dislocations. No suspicious bony lesions. The entire calcaneal spurring. Soft tissues: No tibiotalar joint effusion. Achilles tendon appears normal. IMPRESSION: 1. No acute osseous abnormalities. 2. Plantar calcaneal spurring. Reviewed by: Denver Landis MD on 05/10/2021 2:22 PM PDT Approved by: Denver Landis MD on 05/10/2021 2:22 PM PDT Station ID: [id number]
== END 2021-05-09 23:59 | disposition home or self-care (01) ==
LOC: DI.S 17:04
PROVIDERS: ATTEND Physician Assistant Medical
DX: M79.671 Pain in right foot (principal); M77.31 Calcaneal spur, right foot

== ENCOUNTER 2021-05-24 10:59 | Outpatient (CLI) | payer MEDICAID ==
[2021-05-24 14:21] LABS: BASOPHILS % (AUTO) 0.6 %; EOSINOPHILS # (AUTO) 0.1 10^3/uL (0.0-0.7); EOSINOPHILS % (AUTO) 1.1 %; HGB - HEMOGLOBIN 12.6 g/dL (12.0-16.0); LYMPHOCYTES # (AUTO) 1.7 10^3/uL (1.5-3.5); LYMPHOCYTES % (AUTO) 36.6 %; MEAN CORPUSCULAR HEMOGLOBIN 34.6 pg (27.0-31.0); MEAN CORPUSCULAR HGB CONC 34.1 g/dL (32.0-36.0); MEAN CORPUSCULAR VOLUME 101.6 fL (81.0-99.0); MEAN PLATELET VOLUME 11.2 fL (7.9-10.8); MONOCYTES # (AUTO) 0.3 10^3/uL (0.0-1.0); MONOCYTES % (AUTO) 6.7 %; NEUTROPHILS # (AUTO) 2.5 10^3/uL (1.5-6.6); NEUTROPHILS % (AUTO) 54.6 %; PLT - PLATELET COUNT 43 10^3/uL (130-450); RED BLOOD COUNT 3.64 10^6/uL (4.20-5.40); RED CELL DISTRIBUTION WIDTH 12.1 % (12.0-15.0); WHITE BLOOD COUNT 4.6 x10^3/uL (4.8-10.8)
[2021-05-24 14:37] LABS: ALBUMIN 4.4 g/dL (3.2-5.5); ALBUMIN/GLOBULIN RATIO 1.5 (1.0-2.2); BILIRUBIN,TOTAL 0.9 mg/dL (0.2-1.0); CALCIUM 9.3 mg/dL (8.5-10.3); CREATININE 0.6 mg/dL (0.4-1.0); POTASSIUM 3.7 mmol/L (3.5-5.0); TOTAL PROTEIN 7.3 g/dL (6.7-8.2)
[2021-05-24 14:42] LABS: THYROID STIMULATING HORMONE 0.68 uIU/mL (0.34-5.60)
== END 2021-05-24 11:00 | disposition home or self-care (01) ==
LOC: LAB.S 10:59
PROVIDERS: ATTEND Registered Nurse
DX: R53.83 Other fatigue (principal); R10.9 Unspecified abdominal pain
CPT/HCPCS: 36415; 80053; 84443; 85025

== ENCOUNTER 2021-07-26 17:24 | Emergency (ER) | payer MEDICAID ==
[2021-07-26 18:12] LABS: BASOPHILS % (AUTO) 0.4 %; EOSINOPHILS # (AUTO) 0.1 10^3/uL (0.0-0.7); EOSINOPHILS % (AUTO) 1.3 %; HCT - HEMATOCRIT 35.6 % (37.0-47.0); HGB - HEMOGLOBIN 12.2 g/dL (12.0-16.0); LYMPHOCYTES # (AUTO) 1.9 10^3/uL (1.5-3.5); MEAN CORPUSCULAR HEMOGLOBIN 34.4 pg (27.0-31.0); MEAN CORPUSCULAR HGB CONC 34.3 g/dL (32.0-36.0); MEAN CORPUSCULAR VOLUME 100.3 fL (81.0-99.0); MEAN PLATELET VOLUME 10.2 fL (7.9-10.8); MONOCYTES # (AUTO) 0.4 10^3/uL (0.0-1.0); MONOCYTES % (AUTO) 7.4 %; NEUTROPHILS # (AUTO) 3.1 10^3/uL (1.5-6.6); NEUTROPHILS % (AUTO) 55.7 %; PLT - PLATELET COUNT 178 10^3/uL (130-450); RED BLOOD COUNT 3.55 10^6/uL (4.20-5.40); RED CELL DISTRIBUTION WIDTH 11.7 % (12.0-15.0); WHITE BLOOD COUNT 5.5 x10^3/uL (4.8-10.8)
[2021-07-26 18:21] LABS: ALBUMIN 4.4 g/dL (3.2-5.5); ALBUMIN/GLOBULIN RATIO 1.5 (1.0-2.2); BILIRUBIN,TOTAL 0.9 mg/dL (0.2-1.0); CALCIUM 9.3 mg/dL (8.5-10.3); CREATININE 0.5 mg/dL (0.4-1.0); POTASSIUM 3.8 mmol/L (3.5-5.0); TOTAL PROTEIN 7.3 g/dL (6.7-8.2)
--- NOTE | 2021-07-26 19:08 | ED Physician Documentation ---
PD HPI CHEST PAIN - Stated complaint Stated Complaint: LT SIDE CP - Chief complaint Chief Complaint: Back Pain - Additional information Additional information: This is a 41-year-old female who has had intermittent left chest pain radiating into her back for the last week or so. She feels a very localized spot inside the mid chest where the pain is primarily. Its worse with deep breath and she noticed some shortness of breath with activity. She states that the pain does not radiate and she cannot identify any alleviating factors. She has no associated diaphoresis, cough or cold symptoms, fever chills, weakness, lower extremity swelling. She has no history of DVT or PE and no history of recent prolonged immobilization, cancer, surgery. As of as patient has had her fallopian tubes removed. 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 Review of Systems Constitutional: reports: Reviewed and negative Eyes: reports: Reviewed and negative Ears: reports: Reviewed and negative Nose: reports: Reviewed and negative Throat: reports: Reviewed and negative Cardiac: reports: Chest pain / pressure, Palpitations, Reviewed and negative. denies: Pedal edema, Calf pain Respiratory: reports: Dyspnea. 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 : None HEENT: None Psych: Depression, Anxiety, ADD/ADHD Musculoskeletal: None Derm: None - Past Surgical History Past Surgical History: Yes General: Cholecystectomy, Hiatal hernia repair, Other /MINING ENGINEERING TECHNOLOGIST: Other - Present Medications Home Medications: Ambulatory Orders Medication Instructions Recorded Confirmed metFORMIN [Glucophage] 500 mg PO BID 04/15/21 07/26/21 traZODone [Desyrel] 50 mg PO HS 04/15/21 07/26/21 Azithromycin [Zithromax] 0 mg PO DAILY #6 tablet 07/26/21 - Allergies Allergies/Adverse Reactions: Allergies Allergy/AdvReac Type Severity Reaction Status Date / Time No Known Drug Allergies Allergy Verified 07/26/21 17:43 - Social History Does the pt smoke?: No Smoking Status: Never smoker Does the pt drink ETOH?: Yes Does the pt have substance abuse?: No Substance Use and Type: Marijuana, CBD oil / Products - Immunizations Immunizations are current?: Yes - POLST Patient has POLST: No PD ED PE NORMAL - Vitals Vital signs reviewed: Yes - General General: Alert and oriented X 3, No acute distress, Well developed/nourished - HEENT HEENT: Atraumatic, Pharynx benign - Neck Neck: Supple, no meningeal sign, No adenopathy, No JVD - Cardiac Cardiac: RRR, No murmur, No gallop, No rub, Strong equal pulses - Respiratory Respiratory: No respiratory distress, Clear bilaterally - Abdomen Abdomen: Normal bowel sounds, Soft, Non tender, Non distended - Derm Derm: Normal color, Warm and dry, No rash - Extremities Extremities: No deformity, No tenderness to palpate, Normal ROM s pain, No edema, No calf tenderness / cord - Neuro Neuro: Alert and oriented X 3, No motor deficit, No sensory deficit, Normal speech Eye Opening: Spontaneous Motor: Obeys Commands Verbal: Oriented GCS Score: 15 - Psych Psych: Normal mood, Normal affect Results - Vitals Vitals: Vital Signs - 24 hr 07/26/21 07/26/21 07/26/21 17:37 18:17 18:21 Temperature 36.6 C 36.1 C L 36.1 C L Heart Rate 80 74 85 Respiratory 16 16 14 Rate Blood Pressure 140/90 H 129/82 H 128/82 H O2 Saturation 100 100 100 07/26/21 20:11 Temperature 36.8 C Heart Rate 67 Respiratory 18 Rate Blood Pressure 129/93 H O2 Saturation 100 Oxygen O2 Source Room air - Labs Labs: Laboratory Tests 07/26/21 07/26/21 07/26/21 18:00 18:00 18:00 WBC 5.5 RBC 3.55 L Hgb 12.2 Hct 35.6 L MCV 100.3 H MCH 34.4 H MCHC 34.3 RDW 11.7 L Plt Count 178 MPV 10.2 Neut # (Auto) 3.1 Lymph # (Auto) 1.9 [place] # (Auto) 0.4 Eos # (Auto) 0.1 Baso # (Auto) 0.0 Absolute Nucleated RBC 0.00 Nucleated RBC % 0.0 D-Dimer Sodium 133 L Potassium 3.8 Chloride 103 Carbon Dioxide 23 Anion Gap 7.0 BUN 13 Creatinine 0.5 Estimated GFR (MDRD) 136 Glucose 102 H Calcium 9.3 Total Bilirubin 0.9 AST 24 ALT 27 Alkaline Phosphatase 47 Troponin I High Sens < 2.3 L Total Protein 7.3 Albumin 4.4 Globulin 2.9 Albumin/Globulin Ratio 1.5 Lipase 32 07/26/21 19:16 WBC RBC Hgb Hct MCV MCH MCHC RDW Plt Count MPV Neut # (Auto) Lymph # (Auto) [place] # (Auto) Eos # (Auto) Baso # (Auto) Absolute Nucleated RBC Nucleated RBC % D-Dimer < 200.0 L Sodium Potassium Chloride Carbon Dioxide Anion Gap BUN Creatinine Estimated GFR (MDRD) Glucose Calcium Total Bilirubin AST ALT Alkaline Phosphatase Troponin I High Sens Total Protein Albumin Globulin Albumin/Globulin Ratio Lipase PD MEDICAL DECISION MAKING - ED course Complexity details: reviewed results, re-evaluated patient, considered differential, d/w patient ED course: Chiara is a 41-year-old female who presented with chest pain. Differentials included acs, PE, pneumothorax, pneumonia, anxiety, muscle strain. work-up including EKG, troponin, CBC, CMP and D-dimer obtained and labs are largely reassuring. D-dimer and trop negative, vs normal without hypoxia or tachycardia. EKG is nonischemic. Her chest x-ray did show a possible right lower lobe consolidation given her symptoms a recommend that we treat this as a community-acquired pneumonia with azithromycin. Patient given a 5-day prescription and advised to follow-up with her primary care provider in the next 1 to 2 weeks for repeat x-ray to ensure resolution. Discussed with patient I think there may be some anxiety and stress induced symptoms contributing and patient acknowledges this and is working on stress reduction. Encouraged her to follow-up with her primary care provider about this as well. Return precautions discussed in detail including if she were to develop increasing shortness of breath, chest pain, fever or otherwise new concerns return to the ER. Departure - Departure Disposition: 01 Home, Self Care Clinical Impression: Right lower lobe pneumonia Qualifiers: Pneumonia type: due to unspecified organism Qualified Code(s): J18.9 - Pneumonia, unspecified organism Condition: Good Instructions: Pneumonia Dc Prescriptions: Azithromycin [Zithromax] 0 mg PO DAILY #6 tablet Comments: You presented with chest pain. We did a cardiac work-up which is reassuring, however your chest x-ray does show a mild consolidation of the right lower lobe. This could be pneumonia or an effusion. We will treat for pneumonia with azithromycin. And I recommend that you have a repeat chest x-ray in 1 to 2 weeks and follow-up with your primary care provider. If you develop a fever, increased chest pain, increased shortness of breath or was new concerns, return to the ER. Discharge Date/Time: 07/26/21 20:14
--- NOTE | 2021-07-26 19:34 | XRAY Report ---
PROCEDURE: Chest 1 View X-Ray INDICATIONS: chest pain TECHNIQUE: One view of the chest was acquired. COMPARISON: Chest x-ray 04/14/2020 FINDINGS: Surgical changes and devices: None. Lungs and pleura: There are medial right basilar opacities consistent with atelectasis or consolidat ion. No pleural effusions or pneumothorax. Mediastinum: Mediastinal contours appear normal. Heart size is normal. Bones and chest wall: No suspicious bony lesions. Overlying soft tissues appear unremarkable. IMPRESSION: 1. Medial right basilar opacities consistent with atelectasis or consolidation. Reviewed by: Twin Braswell MD on 07/26/2021 7:33 PM PDT Approved by: Twin Braswell MD on 07/26/2021 7:33 PM PDT Station ID: [id number]
[2021-07-26 20:13] VITALS: BP 129/93
== END 2021-07-26 20:14 | disposition home or self-care (01) ==
LOC: ED 17:24
DX: J18.9 Pneumonia, unspecified organism (principal)
CPT/HCPCS: 36415; 80053; 83690; 84484; 85025; 85379; 93005; 99284

== ENCOUNTER 2021-08-12 13:58 | Outpatient (CLI) | payer MEDICAID | END 2021-08-12 13:59 | disposition home or self-care (01) | LOC: COV 13:58 | PROVIDERS: ATTEND Physician Assistant | DX: Z01.812 Encounter for preprocedural laboratory examination (principal); Z20.822 Contact with and (suspected) exposure to COVID-19 ==

== ENCOUNTER 2021-11-18 15:54 | Outpatient (CLI) | payer MEDICAID ==
--- NOTE | 2021-11-19 08:47 | Ultrasound Report ---
PROCEDURE: Pelvic ultrasound INDICATIONS: OVARIAN CYST, TECHNIQUE: Real-time scanning was performed of the pelvic organs, with image documentation. Additional endovagi nal scanning was necessary due to incomplete visualization of the adnexal and endometrial structures by transabdominal scanning. COMPARISON: 04/15/2021 FINDINGS: No pathologic free abdominal or pelvic fluid. Uterus: Uterus is heterogenous and normal in size at 1.0 x 3.8 x 5.3 cm. The endometrium measures 2 .6 mm in combined thickness. Ovaries: Right left ovaries measure 5.0 x 2.6 x 3.4 cm and 4.5 x 2.5 x 3.4 cm respectively. Greater than 12 follicles noted bilaterally, largest on the right measures 2.4 x 1.9 cm, the largest on the l eft measures 1.8 x 1.9 cm IMPRESSION: 1. Bilateral ovarian follicles/small cysts are stable from the prior exam, and number greater than 12 bilaterally. Polycystic ovarian syndrome could be considered in the proper clinical setting. Reviewed by: Fer Alvarado MD on 11/19/2021 7:46 AM [facility] Approved by: Fer Alvarado MD on 11/19/2021 7:46 AM [facility] Station ID: [id number]
== END 2021-11-18 15:55 | disposition home or self-care (01) ==
LOC: DI 15:54
PROVIDERS: ATTEND Obstetrics & Gynecology
DX: N83.291 Other ovarian cyst, right side (principal); N83.292 Other ovarian cyst, left side

== ENCOUNTER 2022-02-26 08:00 | Outpatient (CLI) | payer MEDICAID ==
--- NOTE | 2022-02-26 16:17 | XRAY Report ---
PROCEDURE: Chest 2 View X-Ray INDICATIONS: ACUTE COUGH TECHNIQUE: 2 view(s) of the chest. COMPARISON: None. FINDINGS: Surgical changes and devices: None. Lungs and pleura: No pleural effusions or pneumothorax. Lungs are clear. Mediastinum: Mediastinal contours are normal. Heart size is normal. Bones and chest wall: No suspicious bony abnormalities. Soft tissues appear unremarkable. IMPRESSION: Normal chest x-ray Reviewed by: Fer Alvarado MD on 02/26/2022 3:15 PM [facility] Approved by: Fer Alvarado MD on 02/26/2022 3:15 PM [facility] Station ID: [id number]
== END 2022-02-26 23:59 | disposition home or self-care (01) ==
LOC: DI.S 08:00
PROVIDERS: ATTEND Registered Nurse
DX: R05.1 Acute cough (principal); Z87.01 Personal history of pneumonia (recurrent)

== ENCOUNTER 2022-02-26 08:00 | Outpatient (CLI) | payer MEDICAID | END 2022-02-26 23:59 | disposition home or self-care (01) | LOC: LAB.S 08:00 | PROVIDERS: ATTEND Registered Nurse | DX: R07.0 Pain in throat (principal) | CPT/HCPCS: 87070 ==

== ENCOUNTER 2022-03-20 13:52 | Outpatient (CLI) | payer MEDICAID ==
--- NOTE | 2022-03-21 12:40 | Mammography Report ---
BILATERAL DIGITAL SCREENING MAMMOGRAM 3D/2D WITH EXAGGERATED CC: 03/20/2022 CLINICAL: Routine screening. Comparison is made to exam dated: 11/12/2018 mammogram - [facility]. The tissue of both breasts is heterogeneously dense. This may lower the sensitivity of mammography. No significant masses, calcifications, or other findings are seen in either breast. There has been no significant interval change. IMPRESSION: NEGATIVE There is no mammographic evidence of malignancy. A 1 year screening mammogram is recommended. This exam was interpreted at Station ID: [id number]. NOTE: For mammograms, a report in lay terms will be sent to the patient. Approximately 15% of breast malignancies will not be visualized mammographically. In the management of a palpable breast mass, a negative mammogram must not discourage biopsy of a clinically suspicious lesion. Electronically Signed By: Ari Nicholas M.D. ar/[email or web address]:03/20/2022 14:46:16 ACR BI-RADS Category 1: Negative [id number] PARENCHYMAL PATTERN: (D) - The breast(s) demonstrate(s) heterogeneously dense fibroglandular ambar ford. BI-RADS CATEGORY: (1) - 1 RECOMMENDATION: (ANNUAL) - Recommend routine annual screening mammography. [id number] 1 year screening LATERALITY: (B)
== END 2022-03-20 13:53 | disposition home or self-care (01) ==
LOC: DI.S 13:52
PROVIDERS: ATTEND Obstetrics & Gynecology
DX: Z12.31 Encounter for screening mammogram for malignant neoplasm of breast (principal)

== ENCOUNTER 2022-03-24 19:26 | Emergency (ER) | payer MEDICAID ==
[2022-03-24 19:59] LABS: BILIRUBIN,URINE NEGATIVE (NEGATIVE); GLUCOSE, URINE (UA) NEGATIVE (NEGATIVE); KETONES,URINE (UA) NEGATIVE (NEGATIVE); LEUKOCYTE ESTERASE, URINE LARGE (NEGATIVE); NITRITE,URINE POSITIVE (NEGATIVE); OCCULT BLOOD,URINE MODERATE (NEGATIVE); PH,URINE 5.5 PH (5.0-7.5); PROTEIN,URINE NEGATIVE (NEGATIVE); UROBILINOGEN,URINE 0.2 (NORMAL) E.U./dL (NORMAL)
[2022-03-24 20:02] LABS: CLARITY,URINE HAZY (CLEAR); HCG UR QUAL NEGATIVE
[2022-03-24 20:07] LABS: BASOPHILS % (AUTO) 0.4 %; EOSINOPHILS # (AUTO) 0.1 10^3/uL (0.0-0.7); EOSINOPHILS % (AUTO) 1.4 %; HCT - HEMATOCRIT 36.1 % (37.0-47.0); LYMPHOCYTES # (AUTO) 2.3 10^3/uL (1.5-3.5); LYMPHOCYTES % (AUTO) 27.5 %; MEAN CORPUSCULAR HEMOGLOBIN 33.9 pg (27.0-31.0); MEAN CORPUSCULAR VOLUME 94.3 fL (81.0-99.0); MEAN PLATELET VOLUME 10.9 fL (7.9-10.8); MONOCYTES # (AUTO) 0.5 10^3/uL (0.0-1.0); MONOCYTES % (AUTO) 6.3 %; NEUTROPHILS # (AUTO) 5.4 10^3/uL (1.5-6.6); NEUTROPHILS % (AUTO) 64.2 %; PLT - PLATELET COUNT 145 10^3/uL (130-450); RED BLOOD COUNT 3.83 10^6/uL (4.20-5.40); RED CELL DISTRIBUTION WIDTH 12.1 % (12.0-15.0); WHITE BLOOD COUNT 8.4 x10^3/uL (4.8-10.8)
[2022-03-24 20:09] LABS: BACTERIA,URINE Few /HPF (None Seen); RBC,URINE 0-5 /HPF (0-5); SQUAMOUS EPITHELIAL CELL,UR RARE Squamous (<= Few)
[2022-03-24 20:18] LABS: ALBUMIN 4.3 g/dL (3.2-5.5); ALBUMIN/GLOBULIN RATIO 1.3 (1.0-2.2); CALCIUM 9.8 mg/dL (8.5-10.3); CREATININE 0.6 mg/dL (0.4-1.0); POTASSIUM 3.4 mmol/L (3.5-5.0); TOTAL PROTEIN 7.5 g/dL (6.7-8.2)
--- NOTE | 2022-03-24 21:03 | ED Physician Documentation ---
PD HPI ABD PAIN - Stated complaint Stated Complaint: ABD/FLANK PX - Chief complaint Chief Complaint: Abd Pain - History obtained from History obtained from: Patient - History of Present Illness Timing - onset: Today (this morning started with left flank pain that has increased through the day. Had dysuria and frequency for past couple of days.) Timing - details: Gradual onset, Still present (increasing flank pain through day.) Quality: Cramping, Aching, Pain Location: LLQ Radiation: Left flank Improved by: No: Eating, Laying still Worsened by: No: Eating, Moving, Breathing, Palpation Associated symptoms: Nausea, Dysuria. No: Fever, Vomiting, Diarrhea Similar symptoms before: Diagnosis (Similar symptoms to kidney stones in the past. 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 Has had just single PO dose so far. Took some Tylenol for pain earlier but not improving.) Review of Systems Constitutional: denies: Fever, Chills, Myalgias Nose: denies: Rhinorrhea / runny nose, Congestion Throat: denies: Sore throat Cardiac: denies: Chest pain / pressure Respiratory: denies: Cough GI: reports: Abdominal Pain, Nausea. denies: Vomiting, Constipation, Diarrhea : reports: Dysuria, Frequency. 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: Other - Present Medications Home Medications: Ambulatory Orders Medication Instructions Recorded Confirmed traZODone [Desyrel] 2 tab PO HS 04/15/21 01/09/22 ARIPiprazole [Abilify] 5 mg PO HS 01/09/22 01/09/22 Cholecalciferol (Vitamin D3) 1 cap PO OAW 01/09/22 01/09/22 [Vitamin D3] Clobetasol 0.05% Oint [Temovate 1 applic TOP HS 01/09/22 01/09/22 0.05% Oint] Escitalopram Oxalate 20 mg PO DAILY 01/09/22 01/09/22 Estradiol [Estrace] 42.5 gm VG OAW 01/09/22 01/09/22 Lisdexamfetamine Dimesylate 60 mg PO DAILY 01/09/22 01/09/22 [Vyvanse] Oxybutynin Chloride [Ditropan Xl] 5 - 10 mg PO HS 01/09/22 01/09/22 Risperidone [Risperdal] 1 mg PO HS 01/09/22 01/09/22 buPROPion HCL [Bupropion HCl Sr] 150 mg PO DAILY 01/09/22 01/09/22 metFORMIN [Glucophage] 500 mg PO BIDWM 01/09/22 01/09/22 Ondansetron Odt [Zofran] 4 mg TL Q6H PRN #10 tablet 03/24/22 Oxycodone HCl/Acetaminophen 1 each PO Q6H PRN #15 tablet 03/24/22 [Percocet 5-325 mg Tablet] - Allergies Allergies/Adverse Reactions: Allergies Allergy/AdvReac Type Severity Reaction Status Date / Time No Known Drug Allergies Allergy Verified 03/24/22 19:48 - Social History Does the pt smoke?: No Smoking Status: Never smoker Does the pt drink ETOH?: Yes Does the pt have substance abuse?: No - Immunizations Immunizations are current?: Yes - POLST Patient has POLST: No PD ED PE NORMAL - Vitals Vital signs reviewed: Yes - General General: Alert and oriented X 3, Well developed/nourished, Other (appears in considerable pain left flank. Restless movement on cart to find comfort. ) - Neck Neck: Supple, no meningeal sign, No adenopathy - Cardiac Cardiac: RRR (regular but tachycardic.), No murmur - Respiratory Respiratory: Clear bilaterally - Abdomen Abdomen: Normal bowel sounds, Soft, Non distended, No organomegaly, Other (tender left lower abd and also marked left CVA tenderness to percussion. No rash nor redness. Not tender to light touch. ) - Derm Derm: Normal color, Warm and dry - Extremities Extremities: Normal ROM s pain, No edema, No calf tenderness / cord - Neuro Neuro: Alert and oriented X 3, No motor deficit, No sensory deficit, Normal speech Results - Vitals Vitals: Vital Signs - 24 hr 03/24/22 03/24/22 03/24/22 19:48 21:38 22:59 Temperature 36.5 C 36.5 C 97.8 C H Heart Rate 120 H 100 97 Respiratory 20 18 18 Rate Blood Pressure 150/90 H 154/109 H 150/108 H O2 Saturation 96 98 97 Oxygen O2 Source Room air - Labs Labs: Laboratory Tests 03/24/22 03/24/22 03/24/22 19:50 20:00 20:00 WBC 8.4 RBC 3.83 L Hgb 13.0 Hct 36.1 L MCV 94.3 MCH 33.9 H MCHC 36.0 RDW 12.1 Plt Count 145 MPV 10.9 H Neut # (Auto) 5.4 Lymph # (Auto) 2.3 [place] # (Auto) 0.5 Eos # (Auto) 0.1 Baso # (Auto) 0.0 Absolute Nucleated RBC 0.00 Nucleated RBC % 0.0 Sodium 133 L Potassium 3.4 L Chloride 102 Carbon Dioxide 22 Anion Gap 9.0 BUN 7 Creatinine 0.6 Estimated GFR (MDRD) 110 Glucose 113 H Calcium 9.8 Total Bilirubin 1.0 AST 26 ALT 27 Alkaline Phosphatase 55 Total Protein 7.5 Albumin 4.3 Globulin 3.2 Albumin/Globulin Ratio 1.3 Lipase 24 Urine Color YELLOW Urine Clarity HAZY Urine pH 5.5 Ur Specific [place] <=1.005 Urine Protein NEGATIVE Urine Glucose (UA) NEGATIVE Urine Ketones NEGATIVE Urine Occult Blood MODERATE H Urine Nitrite POSITIVE H Urine Bilirubin NEGATIVE Urine Urobilinogen 0.2 (NORMAL) Ur Leukocyte Esterase LARGE H Urine RBC 0-5 Urine WBC 11-25 H Ur Squamous Epith Cells RARE Squamous Urine Bacteria Few Ur Microscopic Review INDICATED Urine Culture Comments INDICATED Urine HCG, Qual NEGATIVE - Rads (name of study) KUB CT Radiology: Prelim report reviewed (no kidney stones nor hydronephrosis. Some periureteral fat stranding suggesting infectious process. duplicated left renal collecting system. . ), See rad report PD MEDICAL DECISION MAKING - ED course Complexity details: reviewed results (no kidney stones nor other acute structural process. ), re-evaluated patient (improved pain with IV meds. She states does not have need for repeat dose pain meds.), considered differential (Dx with UTi earlier today and symtpoms c/w that, but having signficant left flank pain, so concern of pyelo versus infected stone. Can get KUB CT to eval. Will give pain meds, Toradol and a dose IV abx (will give levaquin since got Rx Cipro today, to keep in same category.), d/w patient Departure - Departure Disposition: Home, Self Care Clinical Impression: Acute left flank pain UTI (urinary tract infection) Qualifiers: Urinary tract infection type: acute pyelonephritis Qualified Code(s): N10 - Acute pyelonephritis Condition: Stable Record reviewed to determine appropriate education?: Yes Instructions: ED Kidney Infec Female Follow-Up: Apple Hwang ARNP [Primary Care Provider] - Prescriptions: Oxycodone HCl/Acetaminophen [Percocet 5-325 mg Tablet] 1 each PO Q6H PRN #15 tablet PRN Reason: pain Ondansetron Odt [Zofran] 4 mg TL Q6H PRN #10 tablet PRN Reason: Nausea / Vomiting Comments: Your kidney stone does not show any signs of kidney stones. There is inflammation of the kidney which would be consistent with urinary tract infection of the bladder and kidney (pyelonephritis.) Continue with the Cipro floxacillin prescription you had been prescribed. To that add an anti-inflammatory such as ibuprofen or naproxen 2 to 3 tablets twice daily with food. Add ondansetron if needed for nausea and Tylenol if needed for mild pains. Use the oxycodone/acetaminophen if needed for worse pain. I would anticipate improvement over the next couple of days and resolution over 3 to 5 days. I transmitted prescriptions to [facility] pharmacy in [place]. I am prescribing a short course of narcotic pain medication for you. These are potentially dangerous and addictive medications that should be used carefully. These medications may constipate you. Take an [id number] stool softener such as docusate twice daily with plenty of water while taking these medications. If you go 24 hours without a bowel movement, take [id number] MiraLAX, per package instructions. Do not drink or drive while taking these medications. If you received narcotic or sedating medications while in the emergency department do not drive for 24 hours. Store this medication in a safe, secure place and out of reach of children. It is a violation of federal law to give or sell this medication to another person or to use in a manner other than prescribed. The ED will not refill narcotic prescriptions, including prescriptions lost or stolen. You can dispose of unwanted medications at the Repairer Controller Tester's office or at several pharmacies such as [facility]. Discharge Date/Time: 03/24/22 22:59
[2022-03-24] MEDS ORDERED: KETOROLAC 15 MG/ML VIAL IVP STA (21:10)
[2022-03-24] MEDS ORDERED: levoFLOXacin 500 MG/100 ML 500 MG/100 ML BAG IV STA (21:10)
[2022-03-24] MEDS ORDERED: HYDROmorphone 1 MG/ML CARPUJECT IVP STA ×2 (21:10→22:07)
[2022-03-24] MEDS ORDERED: SODIUM CHLORIDE 0.9% 1,000 ML IV STA (21:10)
[2022-03-24] MEDS ORDERED: ONDANSETRON 4 MG/2 ML VIAL IVP STA ×2 (21:11→22:24)
[2022-03-24] MEDS ORDERED: ONDANSETRON ODT 4 MG Prepack 2 TL PRN (22:07)
[2022-03-24] MEDS ORDERED: oxyCODONE/ACET 5/325 Prepack 4 PO STA (22:07)
--- NOTE | 2022-03-24 22:27 | CT Report ---
PROCEDURE: Abdomen/Pelvis WO INDICATIONS: left flank pain abrupt. TECHNIQUE: Noncontrast 5 mm thick sections acquired from the diaphragms to the symphysis. 5 mm coronal and sagi ttal reformats were then performed. For radiation dose reduction, the following was used: automated exposure control, adjustment of mA and/or kV according to patient size. COMPARISON: CT abdomen pelvis 01/05/2021, 06/25/2017. FINDINGS: Image quality: Excellent. Lung bases: There is mild dependant atelectasis. Heart: Heart is normal in size. URINARY: Right Kidney and Ureter: No stones or hydronephrosis. No hydroureter. Left Kidney and Ureter: No stones or hydronephrosis. There is a duplicated left renal collecting s ystem. Mild periureteral fat stranding is demonstrated along the ureters without a discrete obstructi ng stone identified. There is a small calcification in the left hemipelvis likely representing a phle bolith. Bladder: Normal wall thickness. No stones. ABDOMEN: Liver: Noncontrast evaluation of the liver demonstrates no discrete mass. Gallbladder:Surgically absent. Biliary ducts: No biliary ductal dilatation. Pancreas: Unremarkable. Spleen: Normal in size. Adrenal Glands: No adrenal nodules. Stomach and Bowel: Stomach, small bowel loops, and colon are normal in caliber and wall thickness. T he appendix is normal in appearance. There are a few colonic diverticula without acute diverticulitis . Peritoneum: No abnormal intraperitoneal fluid. No free air. Ventral Wall: No hernia. Abdominal Nodes: No retroperitoneal or mesenteric adenopathy by size criteria. Vessels: Aorta and inferior vena cava are normal in size. PELVIS: Pelvic Organs: Unremarkable. Pelvic Nodes: No enlarged lymph nodes. Miscellaneous: No inguinal hernias identified. Bones: Visualized osseous structures demonstrate no suspicious focal lesions. IMPRESSION: 1. Duplicated left renal collecting system with mild periureteral fat stranding but no definite hydro nephrosis. The findings are suggestive of a urinary tract infection and possible sequelae of reflux. Evaluation for pyelonephritis is limited in the absence of intravenous contrast and correlation is re commended clinically. 2. No nephrolithiasis or definite obstructing stone visualized. 3. Colonic diverticulosis without acute diverticulitis. Appendix is normal in appearance. Reviewed by: Twin Villegas MD on 03/24/2022 10:25 PM PDT Approved by: Twin Villegas MD on 03/24/2022 10:25 PM PDT Station ID: [id number]
[2022-03-24 23:00] VITALS: BP 150/108
== END 2022-03-24 22:59 | disposition home or self-care (01) ==
LOC: ED 19:26
DX: N10 Acute pyelonephritis (principal)
CPT/HCPCS: 36415; 74176; 80053; 81001; 81025; 83690; 85025; 87086; 96365; 96375; 96376; 99283; 99284; J1170; 81003

== ENCOUNTER 2022-03-24 23:26 | Outpatient (CLI) | payer MEDICAID | END 2022-03-24 23:27 | disposition left against medical advice (07) | LOC: EMS 23:26 | DX: R11.0 Nausea (principal); F41.9 Anxiety disorder, unspecified ==